=== PATIENT | female | born 1960 | race Caucasian/White ===

== ENCOUNTER 2016-07-28 13:28 | Inpatient (IN) | payer BC, OTHER ==
[2016-07-28 13:32] VITALS: BMI 31.1
--- NOTE | 2016-07-28 16:22 | PDOC ---
History of Present Illness - General History Source: Patient Exam Limitations: No Limitations - History of Present Illness Initial Comments: 07/28/16 16:34 The patient is a 55 year old female, with a significant past medical history of DM, COPD, and glaucoma, who was sent to the emergency department by her PCP with SOB and cough since wednesday. Patient reports noted her O2 sat was in the low 90s. She reports getting her flu shot and notes having a fever of 101 today. Allergies: NKA PCP: <David Eric - Last Filed: 07/28/16 16:33> <Dacia Jasso - Last Filed: 07/28/16 18:27> - General Chief Complaint: Shortness of Breath Stated Complaint: PCP SENT Time Seen by Provider: 07/28/16 16:08 Past History <David Eric - Last Filed: 07/28/16 16:33> - Past Medical History COPD: Yes Diabetes: Yes Hypercholesterolemia: Yes Psychiatric Problems: Yes (bipolar) - Psycho/Social/Smoking Cessation Hx Anxiety: Yes Suicidal Ideation: No Smoking History: Never smoked Number of Cigarettes Smoked Daily: 20 Information on smoking cessation initiated: No Hx Alcohol Use: No Drug/Substance Use Hx: No Substance Use Type: Alcohol <Dacia Jasso - Last Filed: 07/28/16 18:27> - Past Medical History Allergies/Adverse Reactions: Allergies Allergy/AdvReac Type Severity Reaction Status Date / Time No Known Allergies Allergy Verified 07/28/16 13:32 Review of Systems - Review of Systems Able to Perform ROS?: Yes Comments:: 07/28/16 16:34 GENERAL/CONSTITUTIONAL: Yes fever. No weakness. HEAD, EYES, EARS, NOSE AND THROAT: No change in vision. No ear pain or discharge. No sore throat. CARDIOVASCULAR: No chest pain Yes shortness of breath. RESPIRATORY: No cough, wheezing, or hemoptysis. GASTROINTESTINAL: No nausea, vomiting, diarrhea or constipation. GENITOURINARY: No dysuria, frequency, or change in urination. MUSCULOSKELETAL: No joint or muscle swelling or pain. No neck or back pain. SKIN: No rash NEUROLOGIC: No headache, vertigo, loss of consciousness, or change in strength/ sensation. ENDOCRINE: No increased thirst. No abnormal weight change. HEMATOLOGIC/LYMPHATIC: No anemia, easy bleeding, or history of blood clots. ALLERGIC/IMMUNOLOGIC: No hives or skin allergy. <David Eric - Last Filed: 07/28/16 16:33> *Physical Exam - Vital Signs Last Vital Signs Temp Pulse Resp BP Pulse Ox 100.2 F H 112 H 20 133/75 94 L 07/28/16 13:30 07/28/16 13:30 07/28/16 13:30 07/28/16 13:30 07/28/16 13:30 - Physical Exam Comments: 07/28/16 16:34 GENERAL: Awake, alert, and fully oriented, appears ill. HEAD: No signs of trauma EYES: PERRLA, EOMI, sclera anicteric, conjunctiva clear ENT: Auricles normal inspection, hearing grossly normal, nares patent, oropharynx clear without exudates. Moist mucosa NECK: Normal ROM, supple, no lymphadenopathy, JVD, or masses LUNGS: Slightly decreased air entry. No wheezes, and no crackles HEART: Regular rate and rhythm, normal S1 and S2, no murmurs, rubs or gallops ABDOMEN: Soft, nontender, normoactive bowel sounds. No guarding, no rebound. No masses EXTREMITIES: Normal range of motion, no edema. No clubbing or cyanosis. No cords, erythema, or tenderness NEUROLOGICAL: Cranial nerves II through XII grossly intact. Normal speech, normal gait SKIN: Warm, Dry, normal turgor, no rashes or lesions noted. <David Eric - Last Filed: 07/28/16 16:33> - Vital Signs Last Vital Signs Temp Pulse Resp BP Pulse Ox 100.2 F H 112 H 20 133/75 94 L 07/28/16 13:30 07/28/16 13:30 07/28/16 13:30 07/28/16 13:30 07/28/16 13:30 <Dacia Jasso - Last Filed: 07/28/16 18:27> ED Treatment Course - LABORATORY CBC & Chemistry Diagram: 07/28/16 17:27 07/28/16 17:27 <Dacia Jasso - Last Filed: 07/28/16 18:27> *DC/Admit/Observation/Transfer - Attestations Scribe Attestion: 07/28/16 16:34 Documentation prepared by David Eric, acting as certified medical assistant for Dacia Jasso MD. <David Eric - Last Filed: 07/28/16 16:33> - Discharge Dispostion Admit: Yes <Dacia Jasso - Last Filed: 07/28/16 18:27> Diagnosis at time of Disposition: Influenza due to influenza virus, type A, human - Discharge Dispostion Condition at time of disposition: Guarded - Referrals Referrals: Tony Metz MD [Primary Care Provider] -
[2016-07-28] MEDS ORDERED: methylPREDNISolone NA SUCC 125 MG/2 ML VIAL IVPB ONE (16:33)
[2016-07-28] MEDS ORDERED: guaiFENesin/CODEINE 10 ML UNIT-DOSE CUPS PO ONE (16:33)
[2016-07-28] MEDS ORDERED: SODIUM CHLORIDE 1,000 ML IV STA ×2 (16:33→18:14)
[2016-07-28] MEDS ORDERED: ALBUTEROL SO4 2.5/IPRATROPIUM 0.5 INH SOL 3 ML VIAL.NEB. NEB ONE (17:13)
[2016-07-28] MEDS ORDERED: methylPREDNISolone NA SUCC 125 MG/2 ML VIAL ONE (17:13)
[2016-07-28] MEDS ORDERED: guaiFENesin/CODEINE 5 ML UNIT-DOSE CUPS PO ONE (17:13)
[2016-07-28] MEDS: ALBUTEROL SO4 2.5/IPRATROPIUM 0.5 INH SOL 3 ML VIAL.NEB. NEB SCH (17:27)
[2016-07-28] MEDS ORDERED: KETOROLAC TROMETHAMINE 30 MG/1 ML VIAL IVPUSH ONE (17:30)
[2016-07-28 17:33] LABS: BASOPHIL 2.1 % (0-2.0); MCH 29.7 pg (25.7-33.7); MCHC 34.4 g/dl (32.0-36.0); MEAN CELL VOLUME 86.5 fl (80-96); MEAN PLT VOLUME 8.9 fl (7.5-11.1); NEUTROPHILS 54.3 % (42.8-82.8); PLATELET COUNT 149 K/MM3 (134-434); RDW 12.9 % (11.6-15.6); WHITE BLOOD COUNT 4.7 K/mm3 (4.0-10.0)
[2016-07-28 18:09] LABS: ALBUMIN 3.7 g/dl (3.4-5.0); ANION GAP 7 (8-16); BILIRUBIN,TOTAL 0.4 mg/dL (0.2-1.0); CO2 28 mmol/L (21-32); CREATININE 0.8 mg/dL (0.55-1.02); SGOT/AST 25 U/L (15-37); SGPT/ALT 29 U/L (12-78); TOT PROT 6.6 g/dl (6.4-8.2)
[2016-07-28 18:10] LABS: ALK PHOS 119 U/L (45-117)
[2016-07-28 18:13] LABS: GLUCOSE,RANDOM 335 mg/dL (74-106)
[2016-07-28] MEDS ORDERED: INSULIN REGULAR HUMAN 100 UNITS/ML *VIAL SQ ONE (18:14)
[2016-07-28] MEDS ORDERED: INSULIN REGULAR HUMAN 100 UNITS/ML *VIAL ONE ×2 (18:17→22:03)
[2016-07-28] MEDS ORDERED: KETOROLAC TROMETHAMINE 30 MG/1 ML VIAL ONE (18:17)
[2016-07-28] MEDS ORDERED: OSELTAMIVIR PHOSPHATE 75 MG CAPSULE PO ONE (18:28)
[2016-07-28] MEDS ORDERED: OSELTAMIVIR PHOSPHATE 75 MG CAPSULE ONE (18:37)
--- NOTE | 2016-07-28 19:18 | PN ---
<Shiloh Dillard - Last Filed: 07/28/16 19:18> Teaching Attending Note Name of Resident: Alyson Wilder ATTENDING PHYSICIAN STATEMENT I saw and evaluated the patient. I reviewed the resident's note and discussed the case with the resident. I agree with the resident's findings and plan as documented. SUBJECTIVE: OBJECTIVE: ASSESSMENT AND PLAN: <BobbyGeraldine - Last Filed: 07/29/16 05:03> Teaching Attending Note ATTENDING PHYSICIAN STATEMENT I saw and evaluated the patient. I reviewed the resident's note and discussed the case with the resident. I agree with the resident's findings and plan as documented. SUBJECTIVE: The patient is a 55 yo F with a PMHx of 55 yo F with hx of diabetes, COPD, glaucoma, bipolar disorder, GERD who was sent to ED by PCP for SOB and dry cough for the past 4 days. She also endorsees subjective fever. Patient reports she had her flu shot. OBJECTIVE: Physical Last Vital Signs Temp Pulse Resp BP Pulse Ox 100.5 F H 123 H 20 130/66 92 L 07/28/16 19:14 07/28/16 19:14 07/28/16 19:14 07/28/16 19:14 07/28/16 19:14 Updated Vital Signs Temp: 99.7 BP: 120/75 Pulse: 124 Pulse Ox: 91 on room air GEN: NAD HEENT: NCAT, PERRL CARD: + Sinus tachycardic. S1 S2 RESP: + Decreased breath sounds bilaterally throughout the bases. CTAB ABD: NT, BWS x4 EXT: - CCE CBCD WBC 4.7 K/mm3 (4.0-10.0) 07/28/16 17:27 RBC 5.52 M/mm3 (3.60-5.2) H 07/28/16 17:27 Hgb 16.4 GM/dL (10.7-15.3) H 07/28/16 17:27 Hct 47.7 % (32.4-45.2) H 07/28/16 17:27 MCV 86.5 fl (80-96) 07/28/16 17:27 MCHC 34.4 g/dl (32.0-36.0) 07/28/16 17:27 RDW 12.9 % (11.6-15.6) 07/28/16 17:27 Plt Count 149 K/MM3 (134-434) 07/28/16 17:27 MPV 8.9 fl (7.5-11.1) 07/28/16 17:27 CMP Sodium 136 mmol/L (136-145) 07/28/16 17:27 Potassium 4.0 mmol/L (3.5-5.1) D 07/28/16 17:27 Chloride 101 mmol/L (98-107) 07/28/16 17:27 Carbon Dioxide 28 mmol/L (21-32) 07/28/16 17:27 Anion Gap 7 (8-16) L 07/28/16 17:27 BUN 8 mg/dL (7-18) D 07/28/16 17:27 Creatinine 0.8 mg/dL (0.55-1.02) 07/28/16 17:27 Creat Clearance w eGFR > 60 (>60) 07/28/16 17: Calcium 8.0 mg/dL (8.5-10.1) L 07/28/16 17:27 Total Bilirubin 0.4 mg/dL (0.2-1.0) 07/28/16 17:27 AST 25 U/L (15-37) D 07/28/16 17:27 ALT 29 U/L (12-78) D 07/28/16 17:27 Alkaline Phosphatase 119 U/L (45-117) H D 07/28/16 17:27 Total Protein 6.6 g/dl (6.4-8.2) 07/28/16 17: Albumin 3.7 g/dl (3.4-5.0) 07/28/16 17:27 IMAGING: Chest Xray IMPRESSION: No acute disease. ASSESSMENT AND PLAN: The patient is a 55 yo F with hx of diabetes, COPD, glaucoma, bipolar disorder, GERD who presents with SOB and cough. The patient was found to be Influenza A+. 1.) Sepsis due to Influenza - IVF - Lactic acid - - Continue Tamiflu for 5 days. - Continue with antiviral 2.) Acute COPD Exacerbation - Duonebs PRN - Continue with Prednisone 3.) Sepsis secondary to Flu - Blood cultures 4.) Diabetes - Sliding scale - Fingersticks - Diabetic diet 5.) DVT PPx - SCDs Admit to Med Surg Documentation prepared by Geraldine Rosales, acting as medical device sales representative for Shiloh Dillard MD.
[2016-07-28] MEDS ORDERED: ACETAMINOPHEN INJECTION 100 ML IVPB ONE (19:20)
[2016-07-28] MEDS ORDERED: ACETAMINOPHEN 1000 MG/100 ML VIAL (NON FORMULARY) IVPB ONE (19:22)
--- NOTE | 2016-07-28 20:07 | HP ---
Addendum entered and electronically signed by Alyson Wilder RES 07/29/16 06:25 : Correction: PAST MEDICAL HISTORY: DM, COPD, GERD, Glaucoma, Bipolar disorder, and Depression Addendum entered and electronically signed by Alyson Wilder RES 07/29/16 06:21 : Repeat lactic acid elevated at 2.749. 1 Bolus of IV NS ordered. Repeat Lactic acid at 0830. Addendum entered and electronically signed by Alyson Wilder RES 07/29/16 00:41 : Lactic Acid level 2.163. Continue hydration with IV NS @75 mls/hr and treat symptomatically. Will repeat another level at 0300. Original Note: CHIEF COMPLAINT: Shortness of breath PCP: Dr. Tony Metz HISTORY OF PRESENT ILLNESS: Patient is a 55 year old female with a PMHx of DM, COPD, GERD, glaucoma, Bipolar disorder, and Depression who complains of shortness of breath a dry cough associated with subjective fevers and chills for the last four days. Patient states last night at 0200 her shortness of breath worsened, which prompted her to visit her PCP this morning. He gave her one nebulizer treatment and recommended that she comes to the ED because of minimal relief of symptoms and an 02 saturation of 90%. Patient does admit to having a history of COPD but was never hospitalized for exacerbations but does report a history of pneumonia one year ago. She does not know her 02 saturation at baseline and denies oxygen dependency. Patient also reports receiving her flu shot this year. Otherwise, patient denies chest pain, headaches, loss on consciousness, acute visual changes, runny nose, throat pain, nausea, vomiting. ER course was notable for: (1) Solu-medrol 125mg, Toradol 30mg IV, Tylenol 1000mg IV, Robitussin AC, First dose Tamiflu 75mg (2) 2L IV NS and 4 units Insulin (3) Chest-xray and flu swab Recent Travel: Denies PAST MEDICAL HISTORY: Denies PAST SURGICAL HISTORY: Denies Social History: Smokin PPD for 37 years Alcohol: Occasionally drinks beer Drugs: Denies Family History: Denies Allergies: No Known Allergies Allergy (Verified 07/28/16 13:32) HOME MEDICATIONS: Medication Instructions Recorded Buspirone HCl [Buspar -] 20 mg PO BID 07/28/16 Lamotrigine [Lamictal] 100 mg PO DAILY 07/28/16 Metformin HCl 500 mg PO BID 07/28/16 Omeprazole Magnesium [Prilosec] 10 mg PO ASDIR 07/28/16 REVIEW OF SYSTEMS CONSTITUTIONAL: Present: subjective fever, chills Absent: diaphoresis, generalized weakness, malaise, loss of appetite, weight change HEENT: Absent: rhinorrhea, nasal congestion, throat pain, throat swelling, difficulty swallowing, mouth swelling, ear pain, eye pain, visual changes CARDIOVASCULAR: Absent: chest pain, syncope, palpitations, irregular heart rate, lightheadedness , peripheral edema RESPIRATORY: Present: cough, shortness of breath Absent: dyspnea with exertion, orthopnea, wheezing, stridor, hemoptysis GASTROINTESTINAL: Absent: abdominal pain, abdominal distension, nausea, vomiting, diarrhea, constipation, melena, hematochezia GENITOURINARY: Absent: dysuria, frequency, urgency, hesitancy, hematuria, flank pain, genital pain MUSCULOSKELETAL: Absent: myalgia, arthralgia, joint swelling, back pain, neck pain SKIN: Absent: rash, itching, pallor HEMATOLOGIC/IMMUNOLOGIC: Absent: easy bleeding, easy bruising, lymphadenopathy, frequent infections ENDOCRINE: Absent: unexplained weight gain, unexplained weight loss, heat intolerance, cold intolerance NEUROLOGIC: Absent: headache, focal weakness or paresthesias, dizziness, unsteady gait, seizure, mental status changes, bladder or bowel incontinence PSYCHIATRIC: Absent: anxiety, depression, suicidal or homicidal ideation, hallucinations. Vital Signs - 24 hr 07/28/16 07/28/16 07/28/16 13:30 17:00 19:14 Temperature 100.2 F H 100.5 F H Pulse Rate 112 H Pulse Rate [ 123 H Right] Respiratory 20 20 Rate Blood Pressure 133/75 Blood Pressure 130/66 [Left Arm] O2 Sat by Pulse 94 L 100 92 L Oximetry (%) Repeat Vitals: Temp: 99.7 BP: 120/75 Pulse: 124 Pulse Ox: 91 on room air PHYSICAL EXAMINATION GENERAL: Awake, alert, and fully oriented, in no acute distress. HEAD: Normal with no signs of trauma. EYES: Pupils equal, round and reactive to light, extraocular movements intact, sclera anicteric, conjunctiva clear. EARS, NOSE, THROAT: Ears normal, nares patent, oropharynx clear without exudates. Moist mucous membranes. NECK: Normal range of motion, supple without lymphadenopathy, JVD, or masses. LUNGS: Decreased breath sounds throughout lung bases bilaterally. No wheezes, and no crackles. No accessory muscle use. HEART: Tachycardia with regular rhythm, normal S1 and S2 without murmur, rub or gallop. ABDOMEN: Soft, nontender, not distended, normoactive bowel sounds, no guarding, no rebound, no masses. No hepatomegaly or splenomegaly. MUSCULOSKELETAL: Normal range of motion at all joints. No CVA tenderness. UPPER EXTREMITIES: No peripheral edema. LOWER EXTREMITIES: No peripheral edema. NEUROLOGICAL: Normal speech, Motor strength 5/5 throughout, sensory intact, no focal deficits. PSYCHIATRIC: Cooperative. Good eye contact. Appropriate mood and affect. SKIN: Warm, dry, normal turgor, no rashes or lesions noted. Laboratory Results - last 24 hr 07/28/16 07/28/16 17:27 17:27 WBC 4.7 RBC 5.52 H Hgb 16.4 H Hct 47.7 H MCV 86.5 MCHC 34.4 RDW 12.9 Plt Count 149 MPV 8.9 Neutrophils % 54.3 Lymphocytes % 24.8 D Monocytes % 18.8 H D Eosinophils % 0.0 D Basophils % 2.1 H Sodium 136 Potassium 4.0 D Chloride 101 Carbon Dioxide 28 Anion Gap 7 L BUN 8 D Creatinine 0.8 Creat Clearance w eGFR > 60 Random Glucose 335 H* D Calcium 8.0 L Total Bilirubin 0.4 AST 25 D ALT 29 D Alkaline Phosphatase 119 H D Total Protein 6.6 Albumin 3.7 ASSESSMENT/PLAN: Patient is a 55 year old female with a PMHx of DM II, COPD, GERD, Glaucoma, Bipolar disorder, and depression who presented for shortness of breath and dry cough associated with subjective fevers and chills. Patient met SIRS criteria on initial presentation and was found to be influenza A positive. Patient admitted to med/surg for further monitoring and management. Sepsis likely secondary to Influenza A -Rapid flu swab positive -Continue Tamiflu 75mg BID -IV NS @75 mls/hr -Tylenol 650mg Q8H -Blood cultures ordered -Lactic ordered -Continue to treat symptomatically -Continue to monitor vitals COPD Exacerbation -DuoNeb Q6H PRN -Prednisone 60mg daily -2L of 02 -Check 02 saturation -Continue to monitor vitals Hyperglycemia -History of DMII -Glucose level of 335 on initial presentation -Insulin sliding scale -BGM GERD -Protonix 20mg daily Bipolar disorder -Continue Lamotrigine 100mg daily Depression -Continue Buspirone 20mg daily F/E/N -IV NS @75 mls/hr -Electrolytes wnl -Diabetic controlled diet Prophylaxis -SCD's for DVT- moderate risk, able to ambulate -Protonix for GI Disposition -Full code -Admitted to med/surg. Continue to monitor Visit type - Emergency Visit Emergency Visit: Yes ED Registration Date: 07/28/16 Care time: The patient presented to the Emergency Department on the above date and was hospitalized for further evaluation of their emergent condition. - New Patient This patient is new to me today: Yes Date on this admission: 07/29/16 - Critical Care Critical Care patient: No
[2016-07-28] MEDS ORDERED: ACETAMINOPHEN 325 MG TABLET (FP) PO PRN (20:09)
[2016-07-28] MEDS ORDERED: ALBUTEROL SO4 2.5/IPRATROPIUM 0.5 INH SOL 3 ML VIAL.NEB. NEB PRN (20:13)
[2016-07-28] MEDS ORDERED: SODIUM CHLORIDE 1,000 ML IV SCH (21:30)
[2016-07-28] MEDS ORDERED: INSULIN SLIDING SCALE (NOVOLOG) 1 VIAL SQ SCH (22:00)
[2016-07-28] MEDS: busPIRone HCL 10 MG TABLET (FP) PO SCH (22:30)
[2016-07-29 02:10] LABS: CALCIUM 7.7 mg/dL (8.5-10.1)
[2016-07-29] MEDS ORDERED: INSULIN REGULAR HUMAN 100 UNITS/ML *VIAL ONE ×3 (02:28→10:49)
[2016-07-29] MEDS: INSULIN SLIDING SCALE (NOVOLOG) 1 VIAL SQ SCH ×2 (02:32→06:31)
[2016-07-29] MEDS ORDERED: HEMOQUE TEST 1 EACH EACH ONE (04:02)
[2016-07-29 04:22] VITALS: BP 120/78; TEMP 98.2
[2016-07-29] MEDS ORDERED: INSULIN (NOVOLOG) ASPART 100 UNITS/ML 10ML VIAL ONE ×2 (05:22→06:34)
[2016-07-29] MEDS ORDERED: SODIUM CHLORIDE 1,000 ML IV STA (06:20)
[2016-07-29 08:20] LABS: ALBUMIN 3.1 g/dl (3.4-5.0); ANION GAP 9 (8-16); CALCIUM 7.8 mg/dL (8.5-10.1); CO2 22 mmol/L (21-32); GLUCOSE,RANDOM 239 mg/dL (74-106)
[2016-07-29 08:23] LABS: ALK PHOS 107 U/L (45-117); BILIRUBIN,TOTAL 0.2 mg/dL (0.2-1.0); CREATININE 0.8 mg/dL (0.55-1.02); SGPT/ALT 24 U/L (12-78); TOT PROT 5.8 g/dl (6.4-8.2)
[2016-07-29 08:29] LABS: SGOT/AST 18 U/L (15-37)
[2016-07-29] MEDS ORDERED: lamoTRIgine 100 MG TABLET (FP) PO SCH (10:00)
[2016-07-29] MEDS ORDERED: PANTOPRAZOLE 20 MG TABLET (FP) PO SCH ×3 (10:00)
[2016-07-29] MEDS ORDERED: predniSONE 20 MG TABLET (UD) PO SCH (10:00)
[2016-07-29] MEDS ORDERED: OSELTAMIVIR PHOSPHATE 75 MG CAPSULE PO SCH (10:00)
[2016-07-29] MEDS: busPIRone HCL 10 MG TABLET (FP) PO SCH (10:16)
[2016-07-29] MEDS ORDERED: INSULIN SLIDING SCALE (NOVOLOG) 1 VIAL SQ SCH (11:00)
--- NOTE | 2016-07-29 15:10 | DS ---
Physical Exam: SUBJECTIVE: Patient seen and examined. She states she is still tired feeling, but improved from when she arrived. OBJECTIVE: Vital Signs Period Temp Pulse Resp BP Sys/Benz Pulse Ox Last 24 Hr 98.2 F-99.1 F 70-85 18-20 111-120/68-78 95-100 PHYSICAL EXAM Neuro: alert, awake, cn 2-12intact Pulm: CTAB CV: s1 s2 rrr no mrg Abd: s nt nd + bs Ext: warm no le edema Skin: ankle tattoo Laboratory Results - last 24 hr 07/28/16 07/28/16 07/29/16 22:00 23:00 00:29 Sodium Potassium Chloride Carbon Dioxide Anion Gap BUN Creatinine Creat Clearance w eGFR POC Glucometer > 400 > 400 > 400 Random Glucose Hemoglobin A1c % Lactic Acid Calcium Total Bilirubin AST ALT Alkaline Phosphatase Total Protein Albumin 07/29/16 07/29/16 07/29/16 00:51 04:11 05:00 Sodium 138 Potassium 4.3 Chloride 107 Carbon Dioxide 25 Anion Gap 6 L BUN 12 D Creatinine 1.0 D Creat Clearance w eGFR POC Glucometer > 400 Random Glucose 572 H* D Hemoglobin A1c % Lactic Acid 2.749 H* Calcium 7.7 L Total Bilirubin AST ALT Alkaline Phosphatase Total Protein Albumin 07/29/16 07/29/16 07/29/16 05:15 06:15 06:16 Sodium 144 Potassium 4.0 Chloride 113 H Carbon Dioxide 22 Anion Gap 9 BUN 12 Creatinine 0.8 Creat Clearance w eGFR > 60 POC Glucometer [id number] Random Glucose 239 H D Hemoglobin A1c % Lactic Acid Calcium 7.8 L Total Bilirubin 0.2 D AST 18 D ALT 24 Alkaline Phosphatase 107 Total Protein 5.8 L Albumin 3.1 L 07/29/16 07/29/16 07/29/16 08:32 08:32 10:46 Sodium Potassium Chloride Carbon Dioxide Anion Gap BUN Creatinine Creat Clearance w eGFR POC Glucometer [phone] Random Glucose Hemoglobin A1c % 11.6 H Lactic Acid 1.305 Calcium Total Bilirubin AST ALT Alkaline Phosphatase Total Protein Albumin HOSPITAL COURSE: Date of Admission:07/28/16 Date of Discharge: 07/29/16 Minutes to complete discharge: 35 Discharge Summary Reason For Visit: INFLUENZA A Current Active Problems Influenza A (Acute) Hospital Course: Initial Hospital Course: Briefly, this 55 year old female with a PMHx of DM, COPD, GERD, glaucoma, Bipolar disorder, and Depression admitted with shortness of breath a dry cough associated with subjective fevers and chills for the last four days. Overnight her shortness of breath worsened, which prompted her to visit her PCP this morning. He gave her one nebulizer treatment and recommended that she came to the ED because of minimal relief of symptoms and an 02 saturation of 90%. Patient does admit to having a history of COPD but was never hospitalized for exacerbations, did have pna x1 year ago. She does not know her 02 saturation at baseline and denies oxygen dependency. She received her flu shot this year. Subsequent Hospital Course/Progress Note/Discharge Summary: Found to be septic with elevated lactic acid. Rapid flu showed Positive for influenza A and was started on tamiflu. Total of 3L fluid given. For SOB was given x1 of 125mg solumedrol with relief. Repeat lactic acid wnl, no further fevers noted. VSS Elevated glucose improved with insulin. PT hgb a1c 11.6 Discussed importance of following up with pyrotechnist with pt, she says if she has to go on insulin she will and will discuss it with her doctor. On discharge pt felt much better than admitted. Lung exam clear, no wheezing or sob noted. Instructed pt to rest, drink plenty of fluids and return to work in 5 days. Pt stable on discharge, prescription sent to pharmacy with pcp follow up. Condition: Stable - Instructions Diet, Activity, Other Instructions: Please return to the ED for any new, persistent, or worsening symptoms. Follow up with your PCP in 1 week and see your diabetes doctor next week for continued management of your diabetes. We have faxed a copy of your discharge summary to his office Resume home medications as directed Take Tamiflu twice a day for the next 4 days until completed Wear face mask around son for next few days Referrals: Tony Metz MD [Primary Care Provider] - 1 Week ([phone]- office number [phone]- office fax number ) Disposition: HOME - Home Medications Comprehensive Discharge Medication List: Ambulatory Orders Buspirone HCl [Buspar -] 20 mg PO BID 07/28/16 Lamotrigine [Lamictal] 100 mg PO DAILY 07/28/16 Metformin HCl 500 mg PO DAILY 07/28/16 Omeprazole Magnesium [Prilosec] 10 mg PO ASDIR 07/28/16 Glyburide 2.5 mg PO DAILY 07/29/16 Oseltamivir Phosphate [Tamiflu -] 75 mg PO BID #10 capsule 07/29/16 Problem List - Problems (1) Uncontrolled diabetes mellitus Code(s): E11.65 - TYPE 2 DIABETES MELLITUS WITH HYPERGLYCEMIA (2) Sepsis Code(s): A41.9 - SEPSIS, UNSPECIFIED ORGANISM (3) Elevated lactic acid level Code(s): E87.2 - ACIDOSIS (4) Shortness of breath Code(s): R06.02 - SHORTNESS OF BREATH (5) Hyperglycemia Code(s): R73.9 - HYPERGLYCEMIA, UNSPECIFIED This patient is new to me today: Yes Date on this admission: 07/29/16 Emergency Visit: Yes ED Registration Date: 07/28/16 Care time: The patient presented to the Emergency Department on the above date and was hospitalized for further evaluation of their emergent condition. Critical Care patient: No - Discharge Referral Referred to [facility] Med P.C[facility] No
[2016-07-29 16:42] VITALS: PULSE 78
== END 2016-07-29 14:56 | disposition home or self-care (01) | DRG 872 ==
LOC: JER 13:28 → JERBED 19:17
PROVIDERS: ADMIT Internal Medicine; ATTEND Nurse Practitioner Acute Care
DX: A41.9 Sepsis, unspecified organism (principal); J44.1 Chronic obstructive pulmonary disease with (acute) exacerbation; F31.89 Other bipolar disorder; J10.1 Influenza due to other identified influenza virus with other respiratory manifestations; K21.9 Gastro-esophageal reflux disease without esophagitis; H40.9 Unspecified glaucoma; E11.65 Type 2 diabetes mellitus with hyperglycemia
CPT/HCPCS: 36415; 71010-TC; 80048; 80053; 83036; 83605; 85025; 87040; 87804; 99285-25

== ENCOUNTER 2017-01-21 09:28 | Emergency (ER) | payer BC, OTHER ==
[2017-01-21 09:33] VITALS: TEMP 97.8; BMI 31.1
--- NOTE | 2017-01-21 09:42 | PDOC ---
History of Present Illness - General History Source: Patient Exam Limitations: No Limitations - History of Present Illness Initial Comments: 01/21/17 10:52 The patient is a 56 year old female with a significant past medical history of hypercholesterolemia, diabetes, COPD, glaucoma, and bipolar disorder, sent by PCP to the Emergency Department with headache and high blood sugar levels. Patient states that her blood sugar was 536 this morning when she saw her PCP this morning at 8:30am. She admits that her blood sugar is not well controlled, as she was in the ED two weeks ago for high blood sugar. She states that she does not control her diet. She also admits to polyuria. She states that he has been experiencing abdominal pain and diarrhea for one week, which is what she went to her PCP today to discuss. She admits to a normal appetite. Patient admits to wheezing secondary to COPD. The patient denies nausea, or vomiting. Patient denies hematochezia. Patient denies fever, cough, and chills. Patient denies chest pain, palpitations, and diaphoresis. Patient denies dizziness, or visual changes. PCP: Dr. Tony Bean Hx: current everyday cigarette smoker 1PPD <Briana Coto - Last Filed: 01/21/17 11:00> <Suha Madison - Last Filed: 01/21/17 15:29> - General Chief Complaint: Blood Sugar Problem Stated Complaint: HEADACHES, HIGH SUGAR Time Seen by Provider: 01/21/17 09:42 Past History <Briana Coto - Last Filed: 01/21/17 11:00> - Past Medical History COPD: Yes Diabetes: Yes Hypercholesterolemia: Yes Psychiatric Problems: Yes (bipolar) - Immunization History Immunization Up to Date: Yes - Psycho/Social/Smoking Cessation Hx Anxiety: Yes Suicidal Ideation: No Smoking History: Current every day smoker Number of Cigarettes Smoked Daily: 20 Information on smoking cessation initiated: Yes 'Breaking Loose' booklet given: 01/21/17 Hx Alcohol Use: No Drug/Substance Use Hx: No Substance Use Type: None <Suha Madison - Last Filed: 01/21/17 15:29> - Past Medical History Allergies/Adverse Reactions: Allergies Allergy/AdvReac Type Severity Reaction Status Date / Time No Known Allergies Allergy Verified 01/21/17 09:33 Home Medications: Ambulatory Orders Buspirone HCl [Buspar -] 20 mg PO BID 07/28/16 Lamotrigine [Lamictal] 100 mg PO DAILY 07/28/16 Metformin HCl 500 mg PO BID 07/28/16 Review of Systems - Review of Systems Able to Perform ROS?: Yes Comments:: 01/21/17 10:52 CONSTITUTIONAL: Present: + high blood sugar levels Absent: fever, no chills, no fatigue EYES: Absent: visual changes ENT: Absent: ear pain, no sore throat CARDIOVASCULAR: Absent: chest pain, no palpitations RESPIRATORY: Absent: cough, no SOB GI: Present: + abdominal pain, + diarrhea Absent: no nausea, no vomiting, no constipation GENITOURINARY: Absent: dysuria, no frequency, no hematuria MUSCULOSKELETAL: Absent: back pain, no arthralgia, no myalgia SKIN: Absent: rash NEURO: Present: + headache Absent: visual changes <Briana Coto - Last Filed: 01/21/17 11:00> *Physical Exam - Vital Signs Last Vital Signs Temp Pulse Resp BP Pulse Ox 97.8 F 90 19 139/69 98 01/21/17 09:31 01/21/17 09:31 01/21/17 09:31 01/21/17 09:31 01/21/17 09:31 - Physical Exam Comments: 01/21/17 10:53 GENERAL: Well-appearing, well-nourished. No apparent distress. HEENT: Normocephalic, atraumatic. PERRL, EOM intact. CARDIOVASCULAR: Normal S1, S2. Regular rate and rhythm. PULMONARY: Diffuse wheezing throughout. Clear to auscultation bilaterally. ABDOMEN: Soft, non-distended, non-tender. EXTREMITIES: Normal ROM in all four extremities. No gross deformities. SKIN: Warm, dry. No rash NEUROLOGICAL: Alert, awake, appropriate. Cranial nerves 2-12 intact. No focal neurological deficits. <Briana Coto - Last Filed: 01/21/17 11:00> - Vital Signs Last Vital Signs Temp Pulse Resp BP Pulse Ox 97.8 F 90 19 139/69 98 01/21/17 09:31 01/21/17 09:31 01/21/17 09:31 01/21/17 09:31 01/21/17 09:31 <Suha Madison Last Filed: 01/21/17 15:29> ED Treatment Course - LABORATORY CBC & Chemistry Diagram: 01/21/17 09:59 01/21/17 09:59 - ADDITIONAL ORDERS Additional order review: Laboratory Results 01/21/17 01/21/17 10:05 09:59 Sodium 136 Potassium 3.9 Chloride 102 Carbon Dioxide 26 Anion Gap 8 BUN 14 Creatinine 0.8 Creat Clearance w eGFR > 60 POC Glucometer [phone] Random Glucose 376 H* D Calcium 9.2 Total Bilirubin 0.4 D AST 16 ALT 31 D Alkaline Phosphatase 92 Total Protein 6.9 Albumin 3.9 D 01/21/17 01/21/17 10:05 09:59 RBC 5.02 MCV 88.8 MCHC 34.4 RDW 13.0 MPV 8.7 Neutrophils % 52.7 Lymphocytes % 34.2 D Monocytes % 10.2 Eosinophils % 1.9 D Basophils % 1.0 POC Glucometer [phone] - Medications Given in the ED: ED Medications Discontinued Medications Generic Name Dose Route Start Last Admin Trade Name Willq PRN Reason Stop Dose Admin Sodium Chloride 1,000 ml 01/21/17 10:12 01/21/17 10:13 Normal Saline - IV 01/21/17 10:13 1,000 ml NOW ONE Administration <Briana Coto - Last Filed: 01/21/17 11:00> - LABORATORY CBC & Chemistry Diagram: 01/21/17 09:59 01/21/17 09:59 <Suha Madison - Last Filed: 01/21/17 15:29> Medical Decision Making - Medical Decision Making 01/21/17 15:26 Pt presents to the ED for hyperglycemia. No evidence of DKA. Resolved in the ED after IV hydration and insulin. Will discharge home with urgent follow up with her PMD. Patient has been couseled on importance of complaiance with diabetic diet. <Suha Madison - Last Filed: 01/21/17 15:29> *DC/Admit/Observation/Transfer - Attestations Scribe Attestion: 01/21/17 11:01 Documentation prepared by Briana Coto, acting as certified medical transcriptionist for Suha Madison MD. <Briana Coto - Last Filed: 01/21/17 11:00> - Discharge Dispostion Admit: No <Suha Madison - Last Filed: 01/21/17 15:29> Diagnosis at time of Disposition: Hyperglycemia - Discharge Dispostion Disposition: HOME Condition at time of disposition: Good - Patient Instructions Printed Discharge Instructions: DI for Hyperglycemia -- Adult
[2017-01-21 10:11] LABS: EOSINOPHIL 1.9 % (0-4.5); MCH 30.6 pg (25.7-33.7); MCHC 34.4 g/dl (32.0-36.0); MEAN CELL VOLUME 88.8 fl (80-96); MEAN PLT VOLUME 8.7 fl (7.5-11.1); NEUTROPHILS 52.7 % (42.8-82.8); PLATELET COUNT 194 K/MM3 (134-434); WHITE BLOOD COUNT 5.8 K/mm3 (4.0-10.0)
[2017-01-21] MEDS ORDERED: SODIUM CHLORIDE 0.9% 1000 ML INFUS.BAG IV ONE ×2 (10:12→12:31)
[2017-01-21] MEDS ORDERED: SODIUM CHLORIDE 0.9% 500 ML INFUS.BAG IV ONE (10:14)
[2017-01-21 10:31] LABS: ALBUMIN 3.9 g/dl (3.4-5.0); ANION GAP 8 (8-16); CALCIUM 9.2 mg/dL (8.5-10.1); CO2 26 mmol/L (21-32)
[2017-01-21 10:35] LABS: BILIRUBIN,TOTAL 0.4 mg/dL (0.2-1.0); CREATININE 0.8 mg/dL (0.55-1.02); SGOT/AST 16 U/L (15-37); SGPT/ALT 31 U/L (12-78)
[2017-01-21 10:37] LABS: ALK PHOS 92 U/L (45-117); TOT PROT 6.9 g/dl (6.4-8.2)
[2017-01-21 10:50] LABS: GLUCOSE,RANDOM 376 mg/dL (74-106)
[2017-01-21 11:34] LABS: URINE APPEARANCE CLEAR; URINE BILIRUBIN NEGATIVE (NEGATIVE); URINE BLOOD NEGATIVE (NEGATIVE); URINE COLOR STRAW; URINE GLUCOSE (UA) 3+ (NEGATIVE); URINE KETONE NEGATIVE (NEGATIVE); URINE LEUK ESTERASE NEGATIVE (NEGATIVE); URINE NITRITE NEGATIVE (NEGATIVE); URINE PROTEIN NEGATIVE (NEGATIVE); URINE UROBILINOGEN NEGATIVE mg/dL (0.2-1.0)
[2017-01-21] MEDS ORDERED: ALBUTEROL SO4 2.5/IPRATROPIUM 0.5 INH SOL 3 ML VIAL.NEB. NEB ONE (12:00)
[2017-01-21] MEDS ORDERED: ALBUTEROL SO4 0.083% IH SOL 2.5 MG/3 ML VIAL.NEB. NEB ONE (12:05)
[2017-01-21] MEDS ORDERED: INSULIN REGULAR HUMAN 100 UNITS/ML *VIAL IVPUSH ONE (14:13)
[2017-01-21 15:45] VITALS: BP 127/75; PULSE 84
== END 2017-01-21 15:45 | disposition home or self-care (01) ==
LOC: JER 09:28
PROC: 3E0F7GC Introduction of Other Therapeutic Substance into Respiratory Tract, Via Natural or Artificial Opening (ICD-10-PCS; principal; 2017-01-21)
PROC: 3E033VG Introduction of Insulin into Peripheral Vein, Percutaneous Approach (ICD-10-PCS; 2017-01-21)
DX: E11.65 Type 2 diabetes mellitus with hyperglycemia (principal); Z79.84 Long term (current) use of oral hypoglycemic drugs; E78.00 Pure hypercholesterolemia, unspecified; F31.9 Bipolar disorder, unspecified; J44.9 Chronic obstructive pulmonary disease, unspecified; F17.210 Nicotine dependence, cigarettes, uncomplicated
CPT/HCPCS: 36415; 80053; 81003; 85025; 99283-25

== ENCOUNTER 2017-04-14 13:02 | Emergency (ER) | payer BC, OTHER ==
[2017-04-14 13:20] VITALS: BMI 29.6
[2017-04-14] MEDS ORDERED: KETOROLAC TROMETHAMINE 60 MG/2 ML VIAL IM ONE (13:26)
[2017-04-14] MEDS ORDERED: KETOROLAC TROMETHAMINE 60 MG/2 ML VIAL ONE (13:32)
--- NOTE | 2017-04-14 13:35 | PDOC ---
History of Present Illness - General Chief Complaint: Injury Stated Complaint: LEG LACERATION Time Seen by Provider: 04/14/17 13:07 History Source: Patient - History of Present Illness Occurred: reports: yesterday Pain Location: reports: lower extremity Past History - Past Medical History Allergies/Adverse Reactions: Allergies Allergy/AdvReac Type Severity Reaction Status Date / Time No Known Allergies Allergy Verified 04/14/17 13:11 Home Medications: Ambulatory Orders Buspirone HCl [Buspar -] 20 mg PO BID 07/28/16 Lamotrigine [Lamictal] 100 mg PO DAILY 07/28/16 Metformin HCl 1,000 mg PO BID 07/28/16 Clindamycin [Cleocin -] 300 mg PO Q6HPO #28 capsule 04/14/17 Liraglutide [Victoza -] 1.8 mg SQ DAILY@0700 04/14/17 COPD: Yes Diabetes: Yes Hypercholesterolemia: Yes Psychiatric Problems: Yes (bipolar) - Immunization History Immunization Up to Date: Yes - Suicide/Smoking/Psychosocial Hx Smoking History: Current every day smoker Number of Cigarettes Smoked Daily: 20 Information on smoking cessation initiated: No 'Breaking Loose' booklet given: 01/21/17 Hx Alcohol Use: Yes (occasionally, verbalized when stressed) Drug/Substance Use Hx: No Substance Use Type: None Review of Systems - Review of Systems ABD/GI: No: Nausea, Vomiting Neurological: No: Headache, Dizziness *Physical Exam - Vital Signs Last Vital Signs Temp Pulse Resp BP Pulse Ox 98.3 F 114 H 16 127/80 95 04/14/17 13:05 04/14/17 13:05 04/14/17 13:05 04/14/17 13:05 04/14/17 13:05 - Physical Exam General Appearance: Yes: Appropriately Dressed. No: Apparent Distress HEENT: positive: Normal Voice Neck: positive: Supple Respiratory/Chest: negative: Respiratory Distress Integumentary: positive: Dry, Warm, Other (~8 cm linear lac down to subcutaneous tissue to anterior aspect of LLE, pedal pulses intact, pt able to bear weight w/ intact strength) Neurologic: positive: Fully Oriented, Alert, Normal Mood/Affect ED Treatment Course - RADIOLOGY Radiology Studies Ordered: Category Date Time Status HEAD CT WITHOUT CONTRAST [CT] Stat CT Scan 04/14/17 13:27 Ordered LEG TIB/FIB-LEFT [RAD] Stat Radiology 04/14/17 13:26 Ordered Medical Decision Making - Medical Decision Making 04/14/17 13:30 56 yo F, h/o NIDDM, glaucoma, COPD, ?anxiety, here w/ LLE laceration. Pt states she was intoxicated at the time of the fall and fell onto broken glass at home this afternoon. Denies head injury, LOC, VILLALOBOS, dizziness, n/. Pt denies ETOH abuse but states she does not drink daily but that she drank today because of some difficulty at work last night and some problems w/ her family See exam Fall in setting of ETOH abuse Denies head injury Has significant laceration to LLE No e/o additional injuries -tetanus UTD -pain control -XR LLE r/o fb -CT head -lac repair (to be performed by resident) 04/14/17 14:05 04/14/17 16:55 Status post suture repair by ED resident (see procedure note). Patient to go home with antibiotics as per ED attending with wound check as needed in 48 hours. Rpt HR 96 and pt reports feeling significantly better. Pt stable for discharge at this time. 04/14/17 16:56 04/14/17 17:05 *DC/Admit/Observation/Transfer Diagnosis at time of Disposition: Leg laceration Qualifiers: Encounter type: initial encounter Laterality: left Qualified Code(s): S81.812A - Laceration without foreign body, left lower leg, initial encounter - Discharge Dispostion Disposition: HOME Condition at time of disposition: Good - Prescriptions Prescriptions: Clindamycin [Cleocin -] 300 mg PO Q6HPO #28 capsule - Referrals Referrals: STAFF,NOT ON [Primary Care Provider] - - Patient Instructions Printed Discharge Instructions: DI for Laceration Repair Additional Instructions: Keep dressing in place for at least 24 hours after which one can be opened to air. You can gently cleaned wound with mild soap and water after 24 hours to prevent crusting over the suture knots. You can also apply an antibiotic ointment twice a day until sutures are removed. Return for redness, discharge or fever Sutures are removed in 8-10 days - Post Discharge Activity Forms/Work/School Notes: Back to Work
[2017-04-14 17:05] VITALS: BP 148/88; TEMP 97.9
[2017-04-14 17:10] VITALS: PULSE 97
== END 2017-04-14 17:10 | disposition home or self-care (01) ==
LOC: JER 13:02
PROC: 3E0233Z Introduction of Anti-inflammatory into Muscle, Percutaneous Approach (ICD-10-PCS; principal; 2017-04-14)
PROC: 0HQLXZZ Repair Left Lower Leg Skin, External Approach (ICD-10-PCS; 2017-04-14)
DX: S81.812A Laceration without foreign body, left lower leg, initial encounter (principal); W01.110A Fall on same level from slipping, tripping and stumbling with subsequent striking against sharp glass, initial encounter; Y93.9 Activity, unspecified; Y92.009 Unspecified place in unspecified non-institutional (private) residence as the place of occurrence of the external cause; E11.9 Type 2 diabetes mellitus without complications; J44.9 Chronic obstructive pulmonary disease, unspecified
CPT/HCPCS: 70450-TC; 73590-TC-LT; 99282-25

== ENCOUNTER 2017-07-09 15:19 | Emergency (ER) | payer BC, OTHER ==
[2017-07-09 15:27] VITALS: BP 155/86; PULSE 100; TEMP 98; BMI 31.1
--- NOTE | 2017-07-09 15:27 | PDOC ---
Rapid Medical Evaluation Chief Complaint: Eye Problem Time Seen by Provider: 07/09/17 15:24 Medical Evaluation: Allergies Allergy/AdvReac Type Severity Reaction Status Date / Time No Known Allergies Allergy Verified 07/09/17 15:23 07/09/17 15:25 Pt presents to the ED with complaints of: worsening left retro orbital pressure with left sided headache and mild blurriness x 3 days, hx glaucoma, no change in drops, unable to get appt with opthal On brief exam: EOMI, PERRL Pt ordered for: none Pt to proceed to the ED Discharge Disposition - Diagnosis Blurred vision - Referrals - Patient Instructions - Post Discharge Activity
--- NOTE | 2017-07-09 16:37 | PDOC ---
History of Present Illness - General Chief Complaint: Eye Problem Stated Complaint: EYE PRESSURE Time Seen by Provider: 07/09/17 15:24 History Source: Patient Exam Limitations: No Limitations - History of Present Illness Initial Comments: CHIEF COMPLAINT: 56 y/o afebrile female with PMH poorly managed DM, and glaucoma c/o VILLALOBOS, left eye pressure and blurry vision x 3 days. HISTORY OF PRESENT ILLNESS: The patient went to urgent care today and was sent here for concern of glaucoma emergency. The patient denies f/c, earache, n/v/d , cough, CP, SOB, abd pain, back pain, neck pain, numbness/tingling in extremities, slurred speech, facial drooping. She has an appointment with her Statistical Engineer on 07/12/17. SHe has been applying her glaucoma drops as prescribed. Vital signs on arrival are notable for pulse of 100. REVIEW OF SYSTEMS: GENERAL/CONSTITUTIONAL: No fever/chills. No weakness. No weight change. HEAD, EYES, EARS, NOSE AND THROAT: +blurred vision and pressure behind left eye. No ear pain or discharge. No sore throat. MUSCULOSKELETAL: No joint or muscle swelling or pain. No neck or back pain. SKIN: No rash or easy bruising. NEUROLOGIC: + headache, vertigo, loss of consciousness, or loss of sensation. PHYSICAL EXAM: GENERAL: The patient is awake, alert, and fully oriented, in no acute distress. She is very well appearing, ambulatory, in NAD or obvious discomfort. HEAD: Normal with no signs of trauma. No hematomas. No pain with palpation of temporal regions. NECK: No c-spine TTP. No nuchal rigidity. ENT: EOMI b/l. Corneas are clear b/l without haziness. PERRLA b/l. No scleral erythema b/l. No proptosis or ptosis. SNELLEN: (with glasses) (R) 20/70 (L) 20/70 (B) 20/50 EXTREMITIES: Normal range of motion, no edema. NEUROLOGICAL: Normal speech, normal gait. CN II-XII grossly intact. No facial drooping. No slurred speech. SKIN: Warm, dry, normal turgor, no rashes or lesions noted. Past History - Past Medical History Allergies/Adverse Reactions: Allergies Allergy/AdvReac Type Severity Reaction Status Date / Time No Known Allergies Allergy Verified 07/09/17 15:23 Home Medications: Ambulatory Orders Buspirone HCl [Buspar -] 20 mg PO BID 07/28/16 Lamotrigine [Lamictal] 100 mg PO DAILY 07/28/16 Metformin HCl 1,000 mg PO BID 07/28/16 Liraglutide [Victoza -] 1.8 mg SQ DAILY@0700 04/14/17 COPD: Yes Diabetes: Yes Hypercholesterolemia: Yes Psychiatric Problems: Yes (bipolar) Other medical history: glucoma - Immunization History Immunization Up to Date: Yes - Suicide/Smoking/Psychosocial Hx Smoking History: Current every day smoker Have you smoked in the past 12 months: Yes Number of Cigarettes Smoked Daily: 20 Information on smoking cessation initiated: Yes 'Breaking Loose' booklet given: 07/09/17 Hx Alcohol Use: Yes (occasionally, verbalized when stressed) Drug/Substance Use Hx: No Substance Use Type: None *Physical Exam - Vital Signs Last Vital Signs Temp Pulse Resp BP Pulse Ox 98.0 F 100 H 18 155/86 100 07/09/17 15:23 07/09/17 15:23 07/09/17 15:23 07/09/17 15:23 07/09/17 15:23 Medical Decision Making - Medical Decision Making A/P: 56 y/o female with history of glaucoma here for 3 days of blurry vision of left eye with headache. We do not have a tonopen in the ER. Normal eye exam. Spoke with Dr. Robertson, Statistical Engineer seasonal driver, and discussed physical exam findings. She does not feel the patient even needs her eye pressure checked as she has no signs of a glaucoma emergency (hazy cornea, sluggish pupil, erythematous sclera). Discussed the case with Dr. Martinez and he agrees with discharge to home with her own ophtho follow up. Gave IM Toradol for headache. The patient states she feels much better after toradol and would like to go home. Instructed her to keep her f/u appointment scheduled for Wednesday07/13/17 and return to the ER with any worsening or concerning symptoms. The patient verbalizes understanding of all instructions, has no further questions and is awaiting discharge. right now *DC/Admit/Observation/Transfer Diagnosis at time of Disposition: Blurred vision Headache Qualifiers: Headache type: tension-type Headache chronicity pattern: acute headache Intractability: not intractable Qualified Code(s): G44.209 - Tension-type headache, unspecified, not intractable - Discharge Dispostion Disposition: HOME Condition at time of disposition: Improved - Referrals Referrals: Alvarez Funes [Primary Care Provider] - - Patient Instructions Printed Discharge Instructions: DI for Visual Field Disturbances, DI for Headache Additional Instructions: Discharge Instructions: -Take Motrin or Ibuprofen with food every 6 hours for headache. -Continue using your eye drops as prescribed -Keep your follow up appointment with your track repair person scheduled for next week. -Return to the ER with any worsening or concerning symptoms - Post Discharge Activity
[2017-07-09] MEDS ORDERED: KETOROLAC TROMETHAMINE 60 MG/2 ML VIAL IM ONE (17:26)
[2017-07-09] MEDS ORDERED: KETOROLAC TROMETHAMINE 60 MG/2 ML VIAL ONE (17:28)
== END 2017-07-09 18:25 | disposition home or self-care (01) ==
LOC: JERFT 15:19
PROC: 3E0233Z Introduction of Anti-inflammatory into Muscle, Percutaneous Approach (ICD-10-PCS; principal; 2017-07-09)
DX: G44.209 Tension-type headache, unspecified, not intractable (principal); H53.8 Other visual disturbances; E11.65 Type 2 diabetes mellitus with hyperglycemia; Z86.69 Personal history of other diseases of the nervous system and sense organs
CPT/HCPCS: 99281-25

== ENCOUNTER 2021-01-15 16:19 | Emergency (ER) | payer BC, OTHER ==
[2021-01-15 16:30] VITALS: BP 125/73; PULSE 76; TEMP 98.2; BMI 30.4
== END 2021-01-15 20:24 | disposition home or self-care (01) ==
LOC: JER 16:19
DX: S09.90XA Unspecified injury of head, initial encounter (principal)
CPT/HCPCS: 70450-TC; 99284-25

== ENCOUNTER 2023-06-14 13:50 | Inpatient (IN) | payer BC, OTHER ==
[2023-06-14 14:32] VITALS: BMI 30.4
[2023-06-14] MEDS: INSULIN ASPART SLIDING SCALE (NOVOLOG) 1 VIAL SQ SCH ×2 (16:50→22:52)
[2023-06-14 16:55] LABS: BASO % 0.7 % (0-2.0); EOS % 1.8 % (0-4.5); HEMATOCRIT 41.6 % (32.4-45.2); LYMPH % 33.3 % (8-40); MCH 28.9 pg (25.7-33.7); MCHC 33.8 g/dl (32.0-36.0); MEAN CELL VOLUME 85.5 fl (80-96); MEAN PLT VOLUME 8.5 fl (7.5-11.1); MONO % 10.1 % (3.8-10.2); NEUT % 54.1 % (42.8-82.8); PLATELET COUNT 240 10^3/uL (134-434); RBC 4.86 M/mm3 (3.60-5.2); RDW 13.3 % (11.6-15.6); WHITE BLOOD COUNT 6.2 K/mm3 (4.0-10.0)
[2023-06-14] MEDS: lamoTRIgine 100 MG TABLET PO SCH (22:50)
[2023-06-14] MEDS: GABAPENTIN 100 MG CAPSULE PO SCH (22:50)
[2023-06-14] MEDS: ATORVASTATIN CA 10 MG TABLET (FP) PO SCH (22:50)
[2023-06-14] MEDS: HEPARIN NA (PORCINE) 5,000 UNITS/ML 1ML VIAL SQ SCH (22:50)
[2023-06-15] MEDS: HEPARIN NA (PORCINE) 5,000 UNITS/ML 1ML VIAL SQ SCH ×3 (06:45→22:22)
[2023-06-15] MEDS: INSULIN ASPART SLIDING SCALE (NOVOLOG) 1 VIAL SQ SCH ×4 (07:53→22:24)
[2023-06-15 09:10] LABS: HEMATOCRIT 38.7 % (32.4-45.2); MCH 28.8 pg (25.7-33.7); MCHC 33.6 g/dl (32.0-36.0); MEAN PLT VOLUME 8.4 fl (7.5-11.1); PLATELET COUNT 208 10^3/uL (134-434); RDW 13.4 % (11.6-15.6); WHITE BLOOD COUNT 5.8 K/mm3 (4.0-10.0)
[2023-06-15 09:33] LABS: POTASSIUM 4.1 mmol/L (3.5-5.1)
[2023-06-15 09:35] LABS: CALCIUM 8.1 mg/dL (8.5-10.1)
[2023-06-15 09:36] LABS: BLOOD UREA NITROGEN 18.2 mg/dL (7-18)
[2023-06-15 09:39] LABS: CREATININE 0.8 mg/dL (0.55-1.3)
[2023-06-15] MEDS: LOSARTAN POTASSIUM 50 MG TABLET PO SCH (09:50)
[2023-06-15] MEDS: DULoxetine HCL 30 MG CAPSULE.DR PO SCH (09:50)
[2023-06-15] MEDS: ESCITALOPRAM OXALATE 10 MG TABLET PO SCH (09:50)
[2023-06-15] MEDS: hydrOXYzine PAMOATE 25 MG CAPSULE (FP) PO SCH (09:51)
[2023-06-15] MEDS ORDERED: FLU VACCINE (FLULAVAL) PF 60 MCG/0.5 ML SYRINGE 2023-2024 IM ONE (10:00)
[2023-06-15] MEDS: GABAPENTIN 100 MG CAPSULE PO SCH (22:22)
[2023-06-15] MEDS: lamoTRIgine 100 MG TABLET PO SCH (22:22)
[2023-06-15] MEDS: ATORVASTATIN CA 10 MG TABLET (FP) PO SCH (22:22)
[2023-06-16] MEDS: INSULIN ASPART SLIDING SCALE (NOVOLOG) 1 VIAL SQ SCH ×4 (06:21→22:32)
[2023-06-16] MEDS: HEPARIN NA (PORCINE) 5,000 UNITS/ML 1ML VIAL SQ SCH ×3 (06:22→22:27)
[2023-06-16 09:35] LABS: CHOLESTEROL 135 mg/dL (50-200)
[2023-06-16 09:36] LABS: LDL CHOLESTEROL (ONLY SJRH) 74 mg/dL (5-100)
[2023-06-16 09:38] LABS: HDL CHOLESTEROL 49 mg/dL (40-60)
[2023-06-16] MEDS: hydrOXYzine PAMOATE 25 MG CAPSULE (FP) PO SCH (09:56)
[2023-06-16] MEDS: LOSARTAN POTASSIUM 50 MG TABLET PO SCH (09:56)
[2023-06-16] MEDS: ESCITALOPRAM OXALATE 10 MG TABLET PO SCH (09:56)
[2023-06-16] MEDS: DULoxetine HCL 30 MG CAPSULE.DR PO SCH (09:56)
[2023-06-16] MEDS: CEFTRIAXONE 1 GM in DEXTROSE 5%-WATER - 50 ML IVPB SCH (14:05)
[2023-06-16] MEDS ORDERED: ACETAMINOPHEN 500 MG TABLET (FP) PO PRN (18:11)
[2023-06-16] MEDS ORDERED: ACETAMINOPHEN 1000 MG/100 ML BAG IVPB PRN (18:12)
[2023-06-16] MEDS: lamoTRIgine 100 MG TABLET PO SCH (22:28)
[2023-06-16] MEDS: ATORVASTATIN CA 10 MG TABLET (FP) PO SCH (22:28)
[2023-06-16] MEDS: GABAPENTIN 100 MG CAPSULE PO SCH (22:28)
[2023-06-16] MEDS: INSULIN (LEVEMIR) 100 UNITS/ML UNITS SQ SCH (22:33)
[2023-06-17] MEDS: INSULIN ASPART SLIDING SCALE (NOVOLOG) 1 VIAL SQ SCH ×4 (06:41→23:36)
[2023-06-17] MEDS: HEPARIN NA (PORCINE) 5,000 UNITS/ML 1ML VIAL SQ SCH (06:42)
[2023-06-17] MEDS: INSULIN (LEVEMIR) 100 UNITS/ML UNITS SQ SCH ×3 (07:00→23:41)
[2023-06-17] MEDS: CEFTRIAXONE 1 GM in DEXTROSE 5%-WATER - 50 ML IVPB SCH (10:18)
[2023-06-17] MEDS: DULoxetine HCL 30 MG CAPSULE.DR PO SCH (10:19)
[2023-06-17] MEDS: LOSARTAN POTASSIUM 50 MG TABLET PO SCH (10:19)
[2023-06-17] MEDS: ESCITALOPRAM OXALATE 10 MG TABLET PO SCH (10:19)
[2023-06-17] MEDS: hydrOXYzine PAMOATE 25 MG CAPSULE (FP) PO SCH (10:19)
[2023-06-17] MEDS: lamoTRIgine 100 MG TABLET PO SCH (21:14)
[2023-06-17] MEDS: GABAPENTIN 100 MG CAPSULE PO SCH (21:14)
[2023-06-17] MEDS: ATORVASTATIN CA 10 MG TABLET (FP) PO SCH (21:15)
[2023-06-18] MEDS: INSULIN ASPART SLIDING SCALE (NOVOLOG) 1 VIAL SQ SCH ×4 (06:55→23:38)
[2023-06-18] MEDS: INSULIN (LEVEMIR) 100 UNITS/ML UNITS SQ SCH ×2 (06:55→23:22)
[2023-06-18] MEDS ORDERED: LIDOCAINE HCL 1%, 10 MG/ML (20ML VIAL) ONE (07:24)
[2023-06-18] MEDS ORDERED: BUPIVACAINE HCL/PF 0.5% (5MG/ML) 10 ML VIAL ONE (07:24)
[2023-06-18] MEDS ORDERED: GENTAMICIN SO4 80 MG/2 ML VIAL ONE (07:51)
[2023-06-18] MEDS ORDERED: oxyCODONE HCL 5 MG TABLET PO PRN ×2 (08:37→10:16)
[2023-06-18] MEDS ORDERED: ONDANSETRON 4 MG/2 ML VIAL IVPUSH PRN ×2 (08:37→10:16)
[2023-06-18] MEDS ORDERED: MIDAZOLAM HCL 2 MG/2 ML SINGLE DOSE VIAL ONE (08:42)
[2023-06-18] MEDS ORDERED: PROPOFOL 20 ML ONE (08:42)
[2023-06-18] MEDS ORDERED: LACTATED RINGERS SOLUTION 1,000 ML IV SCH ×2 (08:45→10:16)
[2023-06-18] MEDS ORDERED: KETOROLAC TROMETHAMINE 30 MG/1 ML VIAL ONE (08:55)
[2023-06-18] MEDS ORDERED: LIDOCAINE HCL 1%, 10 MG/ML (20ML VIAL) INF ONE ×2 (08:58)
[2023-06-18] MEDS ORDERED: BUPIVACAINE HCL/PF 0.5% (5MG/ML) 10 ML VIAL IJ ONE ×2 (08:58)
[2023-06-18] MEDS: DULoxetine HCL 30 MG CAPSULE.DR PO SCH (10:00)
[2023-06-18] MEDS: LOSARTAN POTASSIUM 50 MG TABLET PO SCH (10:00)
[2023-06-18] MEDS: ESCITALOPRAM OXALATE 10 MG TABLET PO SCH (10:00)
[2023-06-18] MEDS: hydrOXYzine PAMOATE 25 MG CAPSULE (FP) PO SCH (10:00)
[2023-06-18] MEDS: CEFTRIAXONE 1 GM in DEXTROSE 5%-WATER - 50 ML IVPB SCH (10:00)
[2023-06-18] MEDS ORDERED: ACETAMINOPHEN 1000 MG/100 ML BAG IVPB PRN (10:16)
[2023-06-18 11:38] LABS: BASO % 0.2 % (0-2.0); EOS % 1.8 % (0-4.5); HEMATOCRIT 41.3 % (32.4-45.2); HEMOGLOBIN 14.1 GM/dL (10.7-15.3); LYMPH % 28.4 % (8-40); MCH 28.9 pg (25.7-33.7); MEAN CELL VOLUME 84.8 fl (80-96); MEAN PLT VOLUME 8.2 fl (7.5-11.1); MONO % 13.4 % (3.8-10.2); NEUT % 56.2 % (42.8-82.8); PLATELET COUNT 215 10^3/uL (134-434); RBC 4.87 M/mm3 (3.60-5.2); RDW 13.1 % (11.6-15.6)
[2023-06-18] MEDS ORDERED: BACITRACIN ZINC 15 GM TUBE TOPICAL OINTMENT TP ONE (20:20)
[2023-06-18] MEDS: lamoTRIgine 100 MG TABLET PO SCH (23:21)
[2023-06-18] MEDS: ATORVASTATIN CA 10 MG TABLET (FP) PO SCH (23:21)
[2023-06-18] MEDS: GABAPENTIN 100 MG CAPSULE PO SCH (23:21)
[2023-06-18] MEDS: ACETAMINOPHEN 500 MG TABLET (FP) PO PRN (23:36)
[2023-06-19] MEDS ORDERED: MELATONIN 5 MG TABLETS PO ONE (01:08)
[2023-06-19] MEDS: INSULIN ASPART SLIDING SCALE (NOVOLOG) 1 VIAL SQ SCH ×4 (06:42→22:05)
[2023-06-19] MEDS: INSULIN (LEVEMIR) 100 UNITS/ML UNITS SQ SCH ×2 (06:43→22:02)
[2023-06-19] MEDS: CEFTRIAXONE 1 GM in DEXTROSE 5%-WATER - 50 ML IVPB SCH (09:43)
[2023-06-19] MEDS: DULoxetine HCL 30 MG CAPSULE.DR PO SCH (09:44)
[2023-06-19] MEDS: ESCITALOPRAM OXALATE 10 MG TABLET PO SCH (09:44)
[2023-06-19] MEDS: LOSARTAN POTASSIUM 50 MG TABLET PO SCH (09:44)
[2023-06-19] MEDS: hydrOXYzine PAMOATE 25 MG CAPSULE (FP) PO SCH (09:45)
[2023-06-19] MEDS: BACITRACIN ZINC 15 GM TUBE TOPICAL OINTMENT TP SCH (09:47)
[2023-06-19 10:09] LABS: BASO % 0.3 % (0-2.0); EOS % 1.7 % (0-4.5); HEMATOCRIT 41.8 % (32.4-45.2); HEMOGLOBIN 14.1 GM/dL (10.7-15.3); LYMPH % 27.8 % (8-40); MCH 28.7 pg (25.7-33.7); MCHC 33.7 g/dl (32.0-36.0); MEAN CELL VOLUME 85.1 fl (80-96); MEAN PLT VOLUME 8.4 fl (7.5-11.1); NEUT % 56.2 % (42.8-82.8); PLATELET COUNT 213 10^3/uL (134-434); RBC 4.91 M/mm3 (3.60-5.2); RDW 13.2 % (11.6-15.6); WHITE BLOOD COUNT 5.9 K/mm3 (4.0-10.0)
[2023-06-19 10:28] LABS: POTASSIUM 4.3 mmol/L (3.5-5.1)
[2023-06-19 10:35] LABS: ALBUMIN 3.2 g/dl (3.4-5.0); BLOOD UREA NITROGEN 21.7 mg/dL (7-18); CALCIUM 8.7 mg/dL (8.5-10.1)
[2023-06-19 10:37] LABS: BILIRUBIN,TOTAL 0.4 mg/dL (0.2-1)
[2023-06-19 10:39] LABS: CREATININE 0.9 mg/dL (0.55-1.3)
[2023-06-19] MEDS: ACETAMINOPHEN 500 MG TABLET (FP) PO PRN (16:01)
[2023-06-19] MEDS: ATORVASTATIN CA 10 MG TABLET (FP) PO SCH (22:02)
[2023-06-19] MEDS: lamoTRIgine 100 MG TABLET PO SCH (22:04)
[2023-06-19] MEDS: GABAPENTIN 100 MG CAPSULE PO SCH (22:06)
[2023-06-20] MEDS: INSULIN (LEVEMIR) 100 UNITS/ML UNITS SQ SCH ×2 (08:08→23:21)
[2023-06-20] MEDS: INSULIN ASPART SLIDING SCALE (NOVOLOG) 1 VIAL SQ SCH ×4 (08:09→23:18)
[2023-06-20] MEDS: DULoxetine HCL 30 MG CAPSULE.DR PO SCH (11:11)
[2023-06-20] MEDS: LOSARTAN POTASSIUM 50 MG TABLET PO SCH (11:11)
[2023-06-20] MEDS: ESCITALOPRAM OXALATE 10 MG TABLET PO SCH (11:11)
[2023-06-20] MEDS: BACITRACIN ZINC 15 GM TUBE TOPICAL OINTMENT TP SCH (11:11)
[2023-06-20] MEDS: CEFTRIAXONE 1 GM in DEXTROSE 5%-WATER - 50 ML IVPB SCH (11:11)
[2023-06-20] MEDS: hydrOXYzine PAMOATE 25 MG CAPSULE (FP) PO SCH (11:13)
[2023-06-20] MEDS: lamoTRIgine 100 MG TABLET PO SCH (22:57)
[2023-06-20] MEDS: ATORVASTATIN CA 10 MG TABLET (FP) PO SCH (22:57)
[2023-06-20] MEDS: GABAPENTIN 100 MG CAPSULE PO SCH (22:58)
[2023-06-20 23:16] VITALS: RESP 17
[2023-06-21] MEDS: ACETAMINOPHEN 500 MG TABLET (FP) PO PRN (00:10)
[2023-06-21 06:30] VITALS: BP 104/56; PULSE 72; TEMP 98.1
[2023-06-21] MEDS: INSULIN ASPART SLIDING SCALE (NOVOLOG) 1 VIAL SQ SCH ×2 (06:53→11:46)
[2023-06-21] MEDS: INSULIN (LEVEMIR) 100 UNITS/ML UNITS SQ SCH (06:54)
[2023-06-21] MEDS: CEFTRIAXONE 1 GM in DEXTROSE 5%-WATER - 50 ML IVPB SCH (10:09)
[2023-06-21] MEDS: DULoxetine HCL 30 MG CAPSULE.DR PO SCH (10:10)
[2023-06-21] MEDS: ESCITALOPRAM OXALATE 10 MG TABLET PO SCH (10:10)
[2023-06-21] MEDS: LOSARTAN POTASSIUM 50 MG TABLET PO SCH (10:10)
[2023-06-21] MEDS: hydrOXYzine PAMOATE 25 MG CAPSULE (FP) PO SCH (10:10)
[2023-06-21] MEDS: BACITRACIN ZINC 15 GM TUBE TOPICAL OINTMENT TP SCH (10:11)
== END 2023-06-21 16:45 | disposition home or self-care (01) | DRG 617 ==
LOC: JER 13:50 → JERBED 16:17 → J5S 21:40
PROVIDERS: ADMIT Internal Medicine; ATTEND Internal Medicine
PROC: 0Y6U0Z3 Detachment at Left 3rd Toe, Low, Open Approach (ICD-10-PCS; principal; 2023-06-18 08:30)
DX: E11.69 Type 2 diabetes mellitus with other specified complication (principal); E11.52 Type 2 diabetes mellitus with diabetic peripheral angiopathy with gangrene; I96 Gangrene, not elsewhere classified; M86.172 Other acute osteomyelitis, left ankle and foot; E11.621 Type 2 diabetes mellitus with foot ulcer; L97.529 Non-pressure chronic ulcer of other part of left foot with unspecified severity; I10 Essential (primary) hypertension; F31.9 Bipolar disorder, unspecified; E11.65 Type 2 diabetes mellitus with hyperglycemia
CPT/HCPCS: 36415; 73610-TC-LT-FY; 73630-TC-LT; 73718-TC-LT; 80048; 80053; 80061; 82550; 82553; 82962; 83036; 84479; 84484; 85025; 85027; 85651; 86140; 88305-TC; 88311-TC; 90686; 93005; 93010; 93926-TC; 94760; 99285-25; G0008; J1644

== ENCOUNTER 2023-09-03 04:27 | Day surgery (SDC) | payer BC, OTHER ==
[2023-08-30 15:02] VITALS: BMI 30.4
[2023-09-03 07:29] VITALS: RESP 18
[2023-09-03] MEDS ORDERED: PROPOFOL 20 ML ONE (10:18)
[2023-09-03] MEDS ORDERED: MIDAZOLAM HCL 2 MG/2 ML SINGLE DOSE VIAL ONE (10:18)
[2023-09-03] MEDS ORDERED: LIDOCAINE HCL 1%, 10 MG/ML (20ML VIAL) ONE (10:20)
[2023-09-03] MEDS ORDERED: GENTAMICIN SO4 80 MG/2 ML VIAL ONE (10:20)
[2023-09-03] MEDS ORDERED: PROMETHAZINE HCL 25 MG/1 ML VIAL IVPB PRN (10:21)
[2023-09-03] MEDS ORDERED: ONDANSETRON 4 MG/2 ML VIAL IVPUSH PRN (10:21)
[2023-09-03] MEDS ORDERED: ACETAMINOPHEN 1000 MG/100 ML BAG IVPB PRN (10:21)
[2023-09-03] MEDS ORDERED: oxyCODONE HCL 5 MG TABLET PO PRN ×2 (10:21)
[2023-09-03] MEDS ORDERED: ceFAZolin SODIUM 1 GM VIAL ONE (10:27)
[2023-09-03] MEDS ORDERED: KETOROLAC TROMETHAMINE 30 MG/1 ML VIAL ONE (10:27)
[2023-09-03] MEDS ORDERED: LACTATED RINGERS SOLUTION 1,000 ML IV SCH (10:30)
[2023-09-03] MEDS: LIDOCAINE HCL 1%, 10 MG/ML (20ML VIAL) INF ONE (10:35)
[2023-09-03] MEDS: BUPIVACAINE HCL/PF 0.5% (5MG/ML) 10 ML VIAL IJ ONE (10:35)
[2023-09-03] MEDS: ceFAZolin SODIUM 1 GM VIAL IVPB ONE (10:38)
[2023-09-03] MEDS: GENTAMICIN SO4 80 MG/2 ML VIAL IVPB ONE (11:10)
[2023-09-03] MEDS: DEXAMETHASONE SOD PHOSPHATE 4 MG/1 ML VIAL IM ONE (11:10)
[2023-09-03 11:45] VITALS: TEMP 97.3
[2023-09-03 12:31] VITALS: BP 112/65; PULSE 71
== END 2023-09-03 13:42 | disposition home or self-care (01) ==
LOC: JASU-SURG 04:27
PROVIDERS: ATTEND Podiatrist Foot Surgery
PROC: 0SQQ0ZZ Repair Left Toe Phalangeal Joint, Open Approach (ICD-10-PCS; principal; 2023-09-03 09:00)
DX: M20.42 Other hammer toe(s) (acquired), left foot (principal)
CPT/HCPCS: 73630-TC-LT; 82962; 88305-TC; 88311-TC

== ENCOUNTER 2023-09-26 12:18 | Inpatient (IN) | payer BC, OTHER ==
[2023-09-26] MEDS ORDERED: VANCOMYCIN HCL 1,500 MG in DEXTROSE 5%-WATER - 500 ML IVPB ONE (13:00)
[2023-09-26] MEDS ORDERED: CEFEPIME 1 GM/100 ML BAG IVPB ONE (13:11)
[2023-09-26] MEDS: CEFEPIME HCL 1 GM VIAL (RESTRICTED TO ID) IVPB ONE (13:19)
[2023-09-26 13:27] LABS: BASO % 0.4 % (0-2.0); EOS % 4.1 % (0-4.5); HEMATOCRIT 42.7 % (32.4-45.2); HEMOGLOBIN 14.5 GM/dL (10.7-15.3); LYMPH % 29.5 % (8-40); MCH 29.3 pg (25.7-33.7); MCHC 33.9 g/dl (32.0-36.0); MEAN CELL VOLUME 86.6 fl (80-96); MEAN PLT VOLUME 8.7 fl (7.5-11.1); MONO % 9.9 % (3.8-10.2); NEUT % 56.1 % (42.8-82.8); PLATELET COUNT 237 10^3/uL (134-434); RBC 4.93 M/mm3 (3.60-5.2); RDW 13.4 % (11.6-15.6); WHITE BLOOD COUNT 5.9 K/mm3 (4.0-10.0)
[2023-09-26 13:36] LABS: PROTHROMBIN TIME (PATIENT) 11.6 SEC (9.7-13.0)
[2023-09-26 13:39] LABS: ACTIVATED PTT 33.7 SECONDS (25.2-36.5)
[2023-09-26 13:45] LABS: POTASSIUM 4.6 mmol/L (3.5-5.1)
[2023-09-26 13:47] LABS: CALCIUM 9.7 mg/dL (8.5-10.1)
[2023-09-26 13:48] LABS: ALBUMIN 3.7 g/dl (3.4-5.0); BLOOD UREA NITROGEN 22.4 mg/dL (7-18)
[2023-09-26 13:51] LABS: CREATININE 0.8 mg/dL (0.55-1.3)
[2023-09-26 13:52] LABS: BILIRUBIN,TOTAL 0.3 mg/dL (0.2-1); TOT PROT 6.5 g/dl (6.4-8.2)
[2023-09-26] MEDS: VANCOMYCIN PREMIX 1.5 GM 1,500 MG/300 ML BAG IVPB ONE (14:22)
[2023-09-26 17:06] VITALS: BMI 30.7
[2023-09-26] MEDS: HEPARIN NA (PORCINE) 5,000 UNITS/ML 1ML VIAL SQ SCH (23:03)
[2023-09-26] MEDS: INSULIN (LEVEMIR) 100 UNITS/ML UNITS SQ SCH (23:04)
[2023-09-26] MEDS: lamoTRIgine 100 MG TABLET PO SCH (23:06)
[2023-09-26] MEDS: ATORVASTATIN CA 10 MG TABLET (FP) PO SCH (23:06)
[2023-09-26] MEDS: GABAPENTIN 100 MG CAPSULE PO SCH (23:06)
[2023-09-27] MEDS: ACETAMINOPHEN 325 MG TABLET (FP) PO PRN (07:10)
[2023-09-27] MEDS ORDERED: hydrOXYzine PAMOATE 25 MG CAPSULE (FP) PO ONE (09:01)
[2023-09-27 09:30] LABS: BASO % 0.8 % (0-2.0); EOS % 3.8 % (0-4.5); HEMATOCRIT 42.3 % (32.4-45.2); HEMOGLOBIN 14.1 GM/dL (10.7-15.3); LYMPH % 36.3 % (8-40); MCH 29.1 pg (25.7-33.7); MCHC 33.3 g/dl (32.0-36.0); MEAN CELL VOLUME 87.4 fl (80-96); MEAN PLT VOLUME 8.7 fl (7.5-11.1); MONO % 10.7 % (3.8-10.2); NEUT % 48.4 % (42.8-82.8); PLATELET COUNT 234 10^3/uL (134-434); RBC 4.84 M/mm3 (3.60-5.2)
[2023-09-27] MEDS: DULoxetine HCL 30 MG CAPSULE.DR PO SCH (09:32)
[2023-09-27] MEDS: LOSARTAN POTASSIUM 50 MG TABLET PO SCH (09:32)
[2023-09-27 09:51] LABS: POTASSIUM 4.3 mmol/L (3.5-5.1)
[2023-09-27] MEDS: hydrOXYzine PAMOATE 25 MG CAPSULE (FP) PO SCH (09:55)
[2023-09-27 09:56] LABS: CALCIUM 9.7 mg/dL (8.5-10.1)
[2023-09-27 09:57] LABS: ALBUMIN 3.7 g/dl (3.4-5.0); BLOOD UREA NITROGEN 23.4 mg/dL (7-18)
[2023-09-27 09:59] LABS: BILIRUBIN,TOTAL 0.2 mg/dL (0.2-1); TOT PROT 6.6 g/dl (6.4-8.2)
[2023-09-27 10:00] LABS: CREATININE 0.8 mg/dL (0.55-1.3)
[2023-09-27] MEDS ORDERED: hydrOXYzine PAMOATE 50 MG CAPSULE (FP) PO SCH (10:00)
[2023-09-27] MEDS: CEFTRIAXONE 1 GM in DEXTROSE 5%-WATER - 50 ML IVPB SCH (12:53)
[2023-09-27] MEDS ORDERED: INSULIN (NOVOLOG) ASPART 100 UNITS/ML 10ML VIAL ONE (18:11)
[2023-09-27] MEDS: INSULIN ASPART SLIDING SCALE (NOVOLOG) 1 VIAL SQ SCH (18:15)
[2023-09-27] MEDS: INSULIN (LEVEMIR) 100 UNITS/ML UNITS SQ ONE ×2 (18:15→23:39)
[2023-09-28] MEDS ORDERED: BUPIVACAINE HCL/PF 0.5% (5MG/ML) 10 ML VIAL ONE (07:05)
[2023-09-28] MEDS ORDERED: LIDOCAINE HCL 1%, 10 MG/ML (20ML VIAL) ONE (07:05)
[2023-09-28] MEDS ORDERED: oxyCODONE HCL 5 MG TABLET PO PRN ×3 (07:23→08:48)
[2023-09-28] MEDS ORDERED: ONDANSETRON 4 MG/2 ML VIAL IVPUSH PRN ×2 (07:23→08:48)
[2023-09-28] MEDS ORDERED: GENTAMICIN SO4 80 MG/2 ML VIAL ONE (07:24)
[2023-09-28] MEDS ORDERED: MIDAZOLAM HCL 2 MG/2 ML SINGLE DOSE VIAL ONE (07:25)
[2023-09-28] MEDS ORDERED: FENTANYL CITRATE/PF 50 MCG/ML VIAL ONE (07:25)
[2023-09-28] MEDS ORDERED: PROPOFOL 20 ML ONE (07:25)
[2023-09-28] MEDS: GENTAMICIN SO4 80 MG/2 ML VIAL IVPB ONE (08:02)
[2023-09-28] MEDS: LIDOCAINE HCL 1%, 10 MG/ML (20ML VIAL) INF ONE (08:02)
[2023-09-28] MEDS ORDERED: KETOROLAC TROMETHAMINE 30 MG/1 ML VIAL ONE (08:12)
[2023-09-28] MEDS: BUPIVACAINE HCL/PF 0.5% (5MG/ML) 10 ML VIAL IJ ONE ×2 (08:14)
[2023-09-28] MEDS ORDERED: [UNRECOGNIZED DRUG - OTHER] PO SCH (10:00)
[2023-09-28] MEDS ORDERED: PATIENT'S OWN MEDICATION (NON-FORMULARY) (Dapagliflozin Propanediol 10 MG) PO SCH (10:00)
[2023-09-28] MEDS: CEFTRIAXONE 1 GM in DEXTROSE 5%-WATER - 50 ML IVPB SCH (11:00)
[2023-09-28] MEDS: hydrOXYzine PAMOATE 25 MG CAPSULE (FP) PO SCH (11:07)
[2023-09-28] MEDS: LOSARTAN POTASSIUM 50 MG TABLET PO SCH (11:08)
[2023-09-28] MEDS: DULoxetine HCL 30 MG CAPSULE.DR PO SCH (11:08)
[2023-09-28] MEDS: HEPARIN NA (PORCINE) 5,000 UNITS/ML 1ML VIAL SQ SCH (11:09)
[2023-09-28] MEDS: LACTATED RINGERS SOLUTION 1,000 ML IV SCH ×2 (11:40→14:55)
[2023-09-28] MEDS ORDERED: INSULIN (NOVOLOG) ASPART 100 UNITS/ML 10ML VIAL ONE ×2 (12:25→17:00)
[2023-09-28] MEDS: INSULIN ASPART SLIDING SCALE (NOVOLOG) 1 VIAL SQ SCH (12:34)
[2023-09-28] MEDS: PATIENT'S OWN MEDICATION (NON-FORMULARY) (Omadacycline Tosylate [Nuzyra] 150 MG Tablet) PO SCH (14:55)
[2023-09-28] MEDS: PATIENT'S OWN MEDICATION (NON-FORMULARY) (Dapagliflozin Propanediol 10 MG Tablet) PO SCH (14:55)
[2023-09-28] MEDS: oxyCODONE HCL 5 MG TABLET PO PRN (18:41)
[2023-09-28] MEDS: lamoTRIgine 100 MG TABLET PO SCH (21:51)
[2023-09-28] MEDS: GABAPENTIN 100 MG CAPSULE PO SCH (21:51)
[2023-09-28] MEDS: ATORVASTATIN CA 10 MG TABLET (FP) PO SCH (21:51)
[2023-09-28] MEDS: INSULIN (LEVEMIR) 100 UNITS/ML UNITS SQ SCH (22:43)
[2023-09-29] MEDS ORDERED: INSULIN (NOVOLOG) ASPART 100 UNITS/ML 10ML VIAL ONE (12:19)
[2023-09-29] MEDS: AMOX TR/POT CLAV 500MG/125MG TABLETS (FP) PO ONE (14:03)
[2023-09-29 14:15] VITALS: RESP 18
[2023-09-29] MEDS: AMOX TR/POT CLAV 500MG/125MG TABLETS (FP) PO SCH (17:55)
[2023-09-29] MEDS: ACETAMINOPHEN 325 MG TABLET (FP) PO PRN (19:11)
[2023-09-30 17:08] VITALS: BP 103/64; PULSE 77; TEMP 98.6
== END 2023-09-30 17:11 | disposition home or self-care (01) | DRG 580 ==
LOC: JER 12:18 → JERBED 12:44 → J8W 16:28
PROVIDERS: ADMIT Internal Medicine; ATTEND Internal Medicine
PROC: 0Y6N0Z5 Detachment at Left Foot, Complete 2nd Ray, Open Approach (ICD-10-PCS; principal; 2023-09-28 07:30)
DX: S91.109A Unspecified open wound of unspecified toe(s) without damage to nail, initial encounter (principal); M86.672 Other chronic osteomyelitis, left ankle and foot; E11.65 Type 2 diabetes mellitus with hyperglycemia; F31.9 Bipolar disorder, unspecified; L08.89 Other specified local infections of the skin and subcutaneous tissue; F17.210 Nicotine dependence, cigarettes, uncomplicated; L03.032 Cellulitis of left toe; X58.XXXA Exposure to other specified factors, initial encounter; Y93.9 Activity, unspecified; Y92.9 Unspecified place or not applicable; Y99.9 Unspecified external cause status; Z89.422 Acquired absence of other left toe(s)
CPT/HCPCS: 36415; 73630-TC-LT; 80053; 82962; 85025; 85610; 85730; 86850; 86900; 86901; 88305-TC; 88311-TC; 93005; 93010; 94760; 99285-25; J1644

== ENCOUNTER 2023-10-29 13:39 | Inpatient (IN) | payer BC, OTHER ==
[2023-10-29] MEDS ORDERED: ACETAMINOPHEN INJECTION 100 ML IVPB ONE (16:07)
[2023-10-29] MEDS ORDERED: PIPERACILLIN/TAZOB 4.5 GM 4.5 GM/100 ML BAG IVPB ONE (16:07)
[2023-10-29] MEDS ORDERED: VANCOMYCIN/WATER 1250 MG 1,250 MG/250 ML BAG IVPB ONE (16:07)
[2023-10-29] MEDS: PIPERACILLIN/TAZOB 4.5 GM 4.5 GM in DEXTROSE 5%-WATER 100 ML IVPB ONE (16:31)
[2023-10-29] MEDS: ACETAMINOPHEN 1000 MG/100 ML BAG IVPB ONE (16:32)
[2023-10-29] MEDS: VANCOMYCIN/WATER 1250 MG 1,250 MG/250 ML BAG IVPB ONE (16:42)
[2023-10-29 16:43] LABS: BASO % 0.6 % (0-2.0); EOS % 1.7 % (0-4.5); HEMATOCRIT 42.9 % (32.4-45.2); HEMOGLOBIN 14.4 GM/dL (10.7-15.3); LYMPH % 27.6 % (8-40); MCH 29.3 pg (25.7-33.7); MCHC 33.6 g/dl (32.0-36.0); MEAN CELL VOLUME 86.9 fl (80-96); MEAN PLT VOLUME 8.2 fl (7.5-11.1); MONO % 10.2 % (3.8-10.2); NEUT % 59.9 % (42.8-82.8); PLATELET COUNT 271 10^3/uL (134-434); RBC 4.94 M/mm3 (3.60-5.2); RDW 12.9 % (11.6-15.6); WHITE BLOOD COUNT 8.8 K/mm3 (4.0-10.0)
[2023-10-29 17:07] LABS: POTASSIUM 4.5 mmol/L (3.5-5.1)
[2023-10-29 17:10] LABS: ALBUMIN 3.6 g/dl (3.4-5.0); CALCIUM 9.3 mg/dL (8.5-10.1)
[2023-10-29 17:11] LABS: BLOOD UREA NITROGEN 24.1 mg/dL (7-18)
[2023-10-29 17:13] LABS: CREATININE 0.7 mg/dL (0.55-1.3)
[2023-10-29 17:15] LABS: BILIRUBIN,TOTAL 0.3 mg/dL (0.2-1); TOT PROT 6.7 g/dl (6.4-8.2)
[2023-10-29] MEDS ORDERED: DOCUSATE SODIUM 100 MG CAPSULE (FP) PO PRN (20:44)
[2023-10-29 21:17] VITALS: BMI 30.1
[2023-10-29] MEDS: ACETAMINOPHEN 1000 MG/100 ML BAG IVPB PRN (22:01)
[2023-10-29] MEDS: INSULIN ASPART SLIDING SCALE (NOVOLOG) 1 VIAL SQ SCH (22:03)
[2023-10-30] MEDS: PIPERACILLIN/TAZOB 3.375 GM 3.375 GM in DEXTROSE 5%-WATER - 50 ML IVPB SCH (02:57)
[2023-10-30 08:56] LABS: INR 0.93 (0.83-1.09); PROTHROMBIN TIME (PATIENT) 10.5 SEC (9.7-13.0)
[2023-10-30 08:56] LABS: BASO % 0.3 % (0-2.0); EOS % 2.8 % (0-4.5); HEMATOCRIT 39.8 % (32.4-45.2); HEMOGLOBIN 13.6 GM/dL (10.7-15.3); LYMPH % 34.6 % (8-40); MCH 29.3 pg (25.7-33.7); MCHC 34.2 g/dl (32.0-36.0); MEAN CELL VOLUME 85.6 fl (80-96); MEAN PLT VOLUME 8.4 fl (7.5-11.1); MONO % 12.5 % (3.8-10.2); NEUT % 49.8 % (42.8-82.8); PLATELET COUNT 237 10^3/uL (134-434); RBC 4.65 M/mm3 (3.60-5.2); WHITE BLOOD COUNT 5.5 K/mm3 (4.0-10.0)
[2023-10-30 08:59] LABS: ACTIVATED PTT 33.1 SECONDS (25.2-36.5)
[2023-10-30 09:02] LABS: POTASSIUM 4.4 mmol/L (3.5-5.1)
[2023-10-30 09:26] LABS: CALCIUM 8.9 mg/dL (8.5-10.1)
[2023-10-30 09:27] LABS: BLOOD UREA NITROGEN 22.1 mg/dL (7-18)
[2023-10-30 09:28] LABS: MAGNESIUM 2.4 mg/dL (1.8-2.4)
[2023-10-30 09:30] LABS: CREATININE 0.9 mg/dL (0.55-1.3)
[2023-10-30] MEDS: DULoxetine HCL 30 MG CAPSULE.DR PO SCH (09:42)
[2023-10-30] MEDS ORDERED: hydrOXYzine PAMOATE 25 MG CAPSULE (FP) PO PRN (10:00)
[2023-10-30 10:24] VITALS: RESP 18
[2023-10-30] MEDS: HEPARIN NA (PORCINE) 5,000 UNITS/ML 1ML VIAL SQ SCH (15:58)
[2023-10-30] MEDS: VANCOMYCIN/WATER 1250 MG 1,250 MG/250 ML BAG IVPB SCH (17:24)
[2023-10-30] MEDS: ATORVASTATIN CA 10 MG TABLET (FP) PO SCH (21:44)
[2023-10-30] MEDS: lamoTRIgine 100 MG TABLET PO SCH (21:44)
[2023-10-30] MEDS: GABAPENTIN 100 MG CAPSULE PO SCH (21:44)
[2023-10-30] MEDS: ACETAMINOPHEN 325 MG TABLET (FP) PO PRN (21:45)
[2023-10-31 07:55] LABS: POTASSIUM 4.5 mmol/L (3.5-5.1)
[2023-10-31 08:02] LABS: ALBUMIN 3.2 g/dl (3.4-5.0); CALCIUM 8.7 mg/dL (8.5-10.1)
[2023-10-31 08:03] LABS: BLOOD UREA NITROGEN 16.8 mg/dL (7-18)
[2023-10-31 08:06] LABS: BILIRUBIN,TOTAL 0.4 mg/dL (0.2-1); CREATININE 0.8 mg/dL (0.55-1.3)
[2023-10-31 08:08] LABS: TOT PROT 5.6 g/dl (6.4-8.2)
[2023-10-31] MEDS: PIPERACILLIN/TAZOB 3.375 GM 3.375 GM in DEXTROSE 5%-WATER - 50 ML IVPB SCH (12:28)
[2023-10-31] MEDS: VANCOMYCIN/WATER 1250 MG 1,250 MG/250 ML BAG IVPB SCH (12:29)
[2023-10-31] MEDS: COLCHICINE 0.6 MG TAB PO SCH (13:51)
[2023-10-31] MEDS: CEFTRIAXONE 2 GM in DEXTROSE 5%-WATER 100 ML IVPB SCH (16:28)
[2023-11-01 06:37] VITALS: BP 118/58; PULSE 68; TEMP 97.9
[2023-11-01] MEDS ORDERED: PATIENT'S OWN MEDICATION (NON-FORMULARY) (Dapagliflozin Propanediol 10 MG Tablet) PO SCH (10:00)
[2023-11-01] MEDS: metFORMIN HCL 500 MG TABLET (FP) PO SCH (10:29)
== END 2023-11-01 11:30 | disposition home or self-care (01) | DRG 566 ==
LOC: JER 13:39 → JERBED 17:43 → J5S 20:58
PROVIDERS: ADMIT Internal Medicine; ATTEND Family Medicine
DX: T87.44 Infection of amputation stump, left lower extremity (principal); Y83.9 Surgical procedure, unspecified as the cause of abnormal reaction of the patient, or of later complication, without mention of misadventure at the time of the procedure; I10 Essential (primary) hypertension; E11.40 Type 2 diabetes mellitus with diabetic neuropathy, unspecified; F31.9 Bipolar disorder, unspecified; F32.9 Major depressive disorder, single episode, unspecified; F17.210 Nicotine dependence, cigarettes, uncomplicated; M79.672 Pain in left foot
CPT/HCPCS: 36415; 73630-TC-LT; 80048; 80053; 80061; 82962; 83036; 83735; 84100; 84550; 85025; 85610; 85651; 85730; 86140; 87040; 93005; 93010; 99285-25; J0131; J1644

== ENCOUNTER 2024-11-30 00:57 | Inpatient (IN) | payer OTHER ==
[2024-11-30] MEDS ORDERED: morphine SULFATE 4 MG/ML VIAL ONE ×2 (01:45→02:56)
[2024-11-30] MEDS ORDERED: ONDANSETRON 4 MG/2 ML VIAL ONE (01:45)
[2024-11-30] MEDS: ONDANSETRON 4 MG/2 ML VIAL IVPUSH ONE (01:56)
[2024-11-30] MEDS: SODIUM CHLORIDE 0.9% 500 ML INFUS.BAG IV ONE (01:56)
[2024-11-30] MEDS: morphine CARPU-JECT 4 MG/1 ML DISP.SYRIN IVPUSH ONE ×2 (01:56→03:10)
[2024-11-30 01:59] LABS: ABSOLUTE IMMATURE GRANULOCYTES 0.04 x10^3/uL (0.0-0.031); BASOPHILS # 0.03 x10^3/uL (0.01-0.08); EOSINOPHIL % 1.9 % (0.7-5.8); EOSINOPHILS # 0.14 x10^3/uL (0.04-0.36); HEMATOCRIT 40.7 % (34.1-44.9); HEMOGLOBIN 13.1 g/dL (11.2-15.7); MCHC 32.2 g/dl (32.2-35.5); MEAN CELL VOLUME 88.7 fl (79.4-94.8); MEAN PLT VOLUME 9.6 fl (9.4-12.3); MONOCYTE # 0.94 x10^3/uL (0.24-0.86); MONOCYTE % 12.9 % (4.7-12.5); PLATELET COUNT 248 x10^3/uL (182-369); RDW 13.1 % (12.4-16.4)
[2024-11-30 02:14] LABS: POTASSIUM 4.2 mmol/L (3.5-5.1)
[2024-11-30 02:16] LABS: ALBUMIN 4.2 g/dl (3.4-5.0); CALCIUM 9.7 mg/dL (8.5-10.1)
[2024-11-30 02:17] LABS: BLOOD UREA NITROGEN 30.5 mg/dL (7-18)
[2024-11-30 02:19] LABS: CREATININE 1.5 mg/dL (0.55-1.3)
[2024-11-30 02:21] LABS: BILIRUBIN,TOTAL 0.4 mg/dL (0.2-1); TOT PROT 6.7 g/dl (6.4-8.2)
[2024-11-30] MEDS ORDERED: MORPHINE SULFATE 2 MG/ML SYRINGE ONE (06:25)
[2024-11-30] MEDS: morphine CARPU-JECT 2 MG/1 ML DISP.SYRIN IVPUSH ONE (06:30)
[2024-11-30] MEDS ORDERED: ACETAMINOPHEN INJECTION 100 ML ONE (09:37)
[2024-11-30] MEDS: ACETAMINOPHEN 1000 MG/100 ML BAG IVPB SCH (09:42)
[2024-11-30] MEDS ORDERED: lamoTRIgine 100 MG TABLET PO SCH (10:00)
[2024-11-30] MEDS ORDERED: POLYETHYLENE GLYCOL (HEALTHYLAX) 3350 17 GM PACKET PO SCH (10:00)
[2024-11-30] MEDS ORDERED: LOSARTAN POTASSIUM 50 MG TABLET PO SCH (10:00)
[2024-11-30] MEDS ORDERED: EMPAGLIFLOZIN (JARDIANCE) 25 MG TABLET PO SCH (10:00)
[2024-11-30] MEDS: SODIUM CHLORIDE 1,000 ML IV STA (10:18)
[2024-11-30] MEDS ORDERED: SENNOSIDES 8.6MG TABLET (FP) PO ONE (10:43)
[2024-11-30] MEDS ORDERED: lamoTRIgine 25 MG TABLET ONE (10:43)
[2024-11-30] MEDS ORDERED: lamoTRIgine 100 MG TABLET ONE (10:43)
[2024-11-30] MEDS ORDERED: POLYETHYLENE GLYCOL (HEALTHYLAX) 3350 17 GM PACKET ONE (10:43)
[2024-11-30] MEDS: LAMOTRIGINE 100 MG, LAMOTRIGINE 25 MG PO SCH (10:54)
[2024-11-30] MEDS: POLYETHYLENE GLYCOL (HEALTHYLAX) 3350 17 GM PACKET PO SCH ×2 (10:54→21:18)
[2024-11-30] MEDS: SENNOSIDES 8.6MG TABLET (FP) PO ONE ×2 (10:54→11:35)
[2024-11-30] MEDS ORDERED: ALPRAZolam 1 MG TABLET ONE (11:24)
[2024-11-30] MEDS: ALPRAZolam 1 MG TABLET PO SCH (11:31)
[2024-11-30] MEDS: SENNOSIDES 8.8 MG/5 ML SYRUP PO SCH (11:35)
[2024-11-30] MEDS: INSULIN ASPART SLIDING SCALE (NOVOLOG) 1 VIAL SQ SCH (11:36)
[2024-11-30 13:38] VITALS: RESP 18
[2024-11-30] MEDS: busPIRone HCL 5 MG TABLET PO SCH (13:51)
[2024-11-30] MEDS: HEPARIN NA (PORCINE) 5,000 UNITS/ML 1ML VIAL SQ SCH (13:51)
[2024-11-30 16:05] VITALS: BMI 34.9
[2024-11-30] MEDS: BISACODYL 10 MG SUPP.RECT PR ONE (18:06)
[2024-11-30] MEDS: LIDOCAINE 5% TOPICAL PATCH TP SCH (18:07)
[2024-11-30] MEDS: ATORVASTATIN CA 10 MG TABLET (FP) PO SCH (21:14)
[2024-11-30] MEDS: LIDOCAINE PATCH REMOVAL MC SCH (21:14)
[2024-11-30] MEDS: INSULIN GLARGINE (LANTUS) 100 UNITS/ML UNITS SQ SCH (21:22)
[2024-11-30] MEDS: lamoTRIgine 100 MG TABLET PO SCH (21:58)
[2024-11-30] MEDS ORDERED: SENNOSIDES 8.8 MG/5 ML SYRUP PO SCH (22:00)
[2024-11-30] MEDS: KETOROLAC TROMETHAMINE 15 MG/ML VIAL IVPUSH PRN (22:41)
[2024-12-01] MEDS: MAG HYDROX/AL HYDROX/SIMETH 30 ML UNIT-DOSE CUP PO ONE (00:42)
[2024-12-01] MEDS: DOCUSATE SODIUM 100 MG CAPSULE (FP) PO ONE (01:27)
[2024-12-01] MEDS ORDERED: HYDROmorphone HCL 2 MG TABLET PO PRN ×2 (09:45→09:58)
[2024-12-01] MEDS ORDERED: HYDROmorphone HCl 2 MG/ML VIAL IVPB PRN (10:38)
[2024-12-01] MEDS: SENNOSIDES 8.6MG TABLET (FP) PO SCH (10:39)
[2024-12-01] MEDS ORDERED: HYDROmorphone HCL CARPU-JECT 2 MG/1 ML DISP.SYRIN IVPB PRN (10:40)
[2024-12-01] MEDS: MINERAL OIL 30 ML UNIT-DOSE CUP PO ONE (10:41)
[2024-12-01] MEDS: POLYETHYLENE GLYCOL (HEALTHYLAX) 3350 17 GM PACKET PO ONE (10:41)
[2024-12-01] MEDS: PEG 3350/NA SULF BICARB CL/KCL 4000 ML SOLN.RECON PO ONE (10:41)
[2024-12-01 10:50] LABS: HEMATOCRIT 38.5 % (34.1-44.9); HEMOGLOBIN 12.4 g/dL (11.2-15.7); MCHC 32.2 g/dl (32.2-35.5); MEAN CELL VOLUME 87.7 fl (79.4-94.8); MEAN PLT VOLUME 9.7 fl (9.4-12.3); PLATELET COUNT 233 x10^3/uL (182-369); RDW 12.8 % (12.4-16.4)
[2024-12-01 11:19] LABS: POTASSIUM 5.1 mmol/L (3.5-5.1)
[2024-12-01] MEDS: SODIUM CHLORIDE 1,000 ML IV SCH (11:21)
[2024-12-01 11:25] LABS: ALBUMIN 3.6 g/dl (3.4-5.0); CALCIUM 9.7 mg/dL (8.5-10.1)
[2024-12-01 11:26] LABS: MAGNESIUM 2.5 mg/dL (1.8-2.4)
[2024-12-01 11:27] LABS: PHOSPHOROUS 3.5 mg/dL (2.5-4.9)
[2024-12-01 11:28] LABS: BILIRUBIN,TOTAL 0.4 mg/dL (0.2-1)
[2024-12-01 11:29] LABS: CREATININE 1.5 mg/dL (0.55-1.3); TOT PROT 6.2 g/dl (6.4-8.2)
[2024-12-01] MEDS: MINERAL OIL ENEMA 133 ML ENEMA RC ONE (11:47)
[2024-12-01] MEDS: MAGNESIUM CITRATE 300 ML BOTTLE PO ONE (12:06)
[2024-12-01] MEDS: POLYETHYLENE GLYCOL (HEALTHYLAX) 3350 17 GM PACKET PO SCH (14:09)
[2024-12-01] MEDS ORDERED: MAG HYDROX/AL HYDROX/SIMETH 30 ML UNIT-DOSE CUP PO PRN (16:12)
[2024-12-01] MEDS: LACTATED RINGERS SOLUTION 1,000 ML/1,000 ML INFUS.BAG IV SCH (20:41)
[2024-12-02 09:15] LABS: POTASSIUM 4.5 mmol/L (3.5-5.1)
[2024-12-02 09:17] LABS: ABSOLUTE IMMATURE GRANULOCYTES 0.02 x10^3/uL (0.0-0.031); BASOPHILS # 0.01 x10^3/uL (0.01-0.08); EOSINOPHIL % 1.4 % (0.7-5.8); EOSINOPHILS # 0.07 x10^3/uL (0.04-0.36); HEMATOCRIT 37.6 % (34.1-44.9); HEMOGLOBIN 12.2 g/dL (11.2-15.7); MCHC 32.4 g/dl (32.2-35.5); MEAN CELL VOLUME 87.2 fl (79.4-94.8); MEAN PLT VOLUME 9.6 fl (9.4-12.3); MONOCYTE # 0.72 x10^3/uL (0.24-0.86); MONOCYTE % 14.3 % (4.7-12.5); PLATELET COUNT 213 x10^3/uL (182-369); RDW 12.8 % (12.4-16.4)
[2024-12-02 09:32] LABS: CREATININE 1.1 mg/dL (0.55-1.3)
[2024-12-02 09:35] LABS: ALBUMIN 3.8 g/dl (3.4-5.0); BLOOD UREA NITROGEN 18.2 mg/dL (7-18); CALCIUM 9.6 mg/dL (8.5-10.1); MAGNESIUM 2.9 mg/dL (1.8-2.4)
[2024-12-02 09:38] LABS: PHOSPHOROUS 2.9 mg/dL (2.5-4.9)
[2024-12-02 09:39] LABS: BILIRUBIN,TOTAL 0.3 mg/dL (0.2-1); TOT PROT 6.4 g/dl (6.4-8.2)
[2024-12-02] MEDS: PEG 3350/NA SULF BICARB CL/KCL 4000 ML SOLN.RECON PO ONE (13:27)
[2024-12-02] MEDS: CycloBENZAprine HCL 10 MG TABLET (FP) PO ONE (14:53)
[2024-12-02] MEDS: LOSARTAN POTASSIUM 50 MG TABLET PO SCH (17:18)
[2024-12-02] MEDS: ACETAMINOPHEN 1000 MG/100 ML BAG IVPB SCH (21:19)
[2024-12-03] MEDS: morphine SULFATE 4 MG/ML VIAL IVPUSH ONE ×2 (01:51→06:02)
[2024-12-03] MEDS: CycloBENZAprine HCL 10 MG TABLET (FP) PO ONE (08:00)
[2024-12-03] MEDS: KETOROLAC TROMETHAMINE 15 MG/ML VIAL IVPUSH ONE (08:00)
[2024-12-03] MEDS: ENOXAPARIN NA (PORCINE) 40 MG/0.4 ML DISP.SYRIN SQ SCH (09:03)
[2024-12-03 10:12] LABS: POTASSIUM 4.3 mmol/L (3.5-5.1)
[2024-12-03 10:15] LABS: ALBUMIN 3.8 g/dl (3.4-5.0); BLOOD UREA NITROGEN 13.9 mg/dL (7-18); CALCIUM 9.4 mg/dL (8.5-10.1); MAGNESIUM 2.1 mg/dL (1.8-2.4)
[2024-12-03 10:18] LABS: CREATININE 1.1 mg/dL (0.55-1.3)
[2024-12-03 10:20] LABS: BILIRUBIN,TOTAL 0.5 mg/dL (0.2-1)
[2024-12-03 10:41] LABS: TOT PROT 6.6 g/dl (6.4-8.2)
[2024-12-03] MEDS: IBUPROFEN 600 MG TABLET (FP) PO SCH (20:16)
[2024-12-03] MEDS: CycloBENZAprine HCL 10 MG TABLET (FP) PO SCH (21:07)
[2024-12-04] MEDS: ACETAMINOPHEN 500 MG TABLET (FP) PO SCH (14:13)
[2024-12-04] MEDS: oxyCODONE HCL 5 MG TABLET PO ONE ×2 (14:39→21:11)
[2024-12-04 15:25] LABS: HEMOGLOBIN 12.9 g/dL (11.2-15.7); MCHC 32.3 g/dl (32.2-35.5); MEAN CELL VOLUME 89.3 fl (79.4-94.8); MEAN PLT VOLUME 9.6 fl (9.4-12.3); PLATELET COUNT 238 x10^3/uL (182-369); RDW 13.1 % (12.4-16.4)
[2024-12-04 15:53] LABS: POTASSIUM 4.6 mmol/L (3.5-5.1)
[2024-12-04 15:55] LABS: CALCIUM 9.7 mg/dL (8.5-10.1)
[2024-12-04 15:56] LABS: ALBUMIN 3.6 g/dl (3.4-5.0); BLOOD UREA NITROGEN 19.1 mg/dL (7-18)
[2024-12-04 15:59] LABS: CREATININE 1.2 mg/dL (0.55-1.3)
[2024-12-04 16:00] LABS: BILIRUBIN,TOTAL 0.4 mg/dL (0.2-1); TOT PROT 6.2 g/dl (6.4-8.2)
[2024-12-04] MEDS: GABAPENTIN 100 MG CAPSULE PO SCH (21:11)
[2024-12-05] MEDS ORDERED: oxyCODONE HCL 5 MG TABLET PO PRN (08:43)
[2024-12-05 08:58] LABS: POTASSIUM 4.7 mmol/L (3.5-5.1)
[2024-12-05 09:06] LABS: CALCIUM 9.3 mg/dL (8.5-10.1)
[2024-12-05 09:07] LABS: ALBUMIN 3.8 g/dl (3.4-5.0); BLOOD UREA NITROGEN 20.4 mg/dL (7-18); MAGNESIUM 2.3 mg/dL (1.8-2.4)
[2024-12-05 09:10] LABS: CREATININE 1.1 mg/dL (0.55-1.3); PHOSPHOROUS 3.9 mg/dL (2.5-4.9)
[2024-12-05 09:12] LABS: BILIRUBIN,TOTAL 0.4 mg/dL (0.2-1); TOT PROT 6.4 g/dl (6.4-8.2)
[2024-12-05] MEDS: POLYETHYLENE GLYCOL (HEALTHYLAX) 3350 17 GM PACKET PO SCH (09:26)
[2024-12-05 11:10] VITALS: BP 129/68; PULSE 86; TEMP 98.2
== END 2024-12-05 15:35 | disposition home or self-care (01) | DRG 392 ==
LOC: JER 00:57 → JERBED 06:02 → J6S 13:09 → OBSVTOIN 12-01 20:43
PROVIDERS: ADMIT Internal Medicine; ATTEND Internal Medicine
DX: K59.00 Constipation, unspecified (principal); F13.20 Sedative, hypnotic or anxiolytic dependence, uncomplicated; E11.40 Type 2 diabetes mellitus with diabetic neuropathy, unspecified; E11.319 Type 2 diabetes mellitus with unspecified diabetic retinopathy without macular edema; F31.9 Bipolar disorder, unspecified; H40.9 Unspecified glaucoma; M10.9 Gout, unspecified; F17.200 Nicotine dependence, unspecified, uncomplicated; E78.5 Hyperlipidemia, unspecified; E86.0 Dehydration; M54.9 Dorsalgia, unspecified; M48.061 Spinal stenosis, lumbar region without neurogenic claudication; R10.32 Left lower quadrant pain
CPT/HCPCS: 36415; 71045-TC-FY; 72131-TC; 72148-TC; 74174-TC; 80053; 82962; 83605; 83690; 83735; 84100; 84484; 85025; 85027; 85651; 86140; 93005; 93010; 99284-25; 99285-25; G0378

== ENCOUNTER 2025-01-18 11:30 | Inpatient (IN) | payer OTHER ==
[2025-01-18 11:35] VITALS: BMI 34.2
[2025-01-18] MEDS ORDERED: IBUPROFEN 400 MG TABLET (FP) PO ONE (12:48)
[2025-01-18] MEDS ORDERED: ACETAMINOPHEN 500 MG TABLET (FP) ONE (12:48)
[2025-01-18] MEDS: IBUPROFEN 400 MG TABLET (FP) PO ONE (13:03)
[2025-01-18] MEDS: ACETAMINOPHEN 500 MG TABLET (FP) PO ONE (13:08)
[2025-01-18 16:13] LABS: ABSOLUTE IMMATURE GRANULOCYTES 0.02 x10^3/uL (0.0-0.031); BASOPHILS # 0.02 x10^3/uL (0.01-0.08); EOSINOPHIL % 0.4 % (0.7-5.8); EOSINOPHILS # 0.03 x10^3/uL (0.04-0.36); MCHC 32.4 g/dl (32.2-35.5); MEAN CELL VOLUME 90.0 fl (79.4-94.8); MEAN PLT VOLUME 10.0 fl (9.4-12.3); MONOCYTE # 1.14 x10^3/uL (0.24-0.86); MONOCYTE % 15.2 % (4.7-12.5); RDW 13.6 % (12.4-16.4)
[2025-01-18 16:32] LABS: ACTIVATED PTT 32.0 SECONDS (25.2-36.5); INR 0.96 (0.83-1.09); PROTHROMBIN TIME (PATIENT) 10.6 SEC (9.7-13.0)
[2025-01-18] MEDS: morphine CARPU-JECT 4 MG/1 ML DISP.SYRIN IVPUSH ONE (16:45)
[2025-01-18] MEDS ORDERED: ACETAMINOPHEN 325 MG TABLET (FP) PO PRN (16:47)
[2025-01-18 16:59] LABS: CO2 27.0 mmol/L (21-32); GLUCOSE,RANDOM 205.0 mg/dL (74-106)
[2025-01-18 17:02] LABS: CREATININE 2.0 mg/dL (0.55-1.3); SGOT/AST 15.0 U/L (15-37); SGPT/ALT 22.0 U/L (13-61)
[2025-01-18 17:04] LABS: TOT PROT 6.3 g/dl (6.4-8.2)
[2025-01-18 17:05] LABS: ALK PHOS 110.0 U/L (45-117)
[2025-01-18] MEDS: SODIUM CHLORIDE 1,000 ML IV SCH (20:17)
[2025-01-18 21:26] LABS: EPI CELLS 6 /uL (0-25.1); HYALINE CASTS 0 /uL (0-3.1); URINE APPEARANCE CLOUDY; URINE BILIRUBIN NEGATIVE (NEGATIVE); URINE COLOR YELLOW; URINE GLUCOSE (UA) 3+ (NEGATIVE); URINE KETONE TRACE (NEGATIVE); URINE LEUK ESTERASE NEGATIVE (NEGATIVE); URINE NITRITE NEGATIVE (NEGATIVE); URINE PROTEIN 2+ (NEGATIVE); URINE UROBILINOGEN 0.2 mg/dL (0.2-1.0)
[2025-01-18] MEDS: morphine CARPU-JECT 2 MG/1 ML DISP.SYRIN IVPUSH PRN (21:41)
[2025-01-18] MEDS: INSULIN GLARGINE (LANTUS) 100 UNITS/ML UNITS SQ SCH (23:29)
[2025-01-18] MEDS: ATORVASTATIN CA 10 MG TABLET (FP) PO SCH (23:29)
[2025-01-18] MEDS: INSULIN ASPART SLIDING SCALE (NOVOLOG) 1 VIAL SQ SCH (23:30)
[2025-01-18] MEDS: HEPARIN NA (PORCINE) 5,000 UNITS/ML 1ML VIAL SQ SCH (23:30)
[2025-01-19] MEDS: ACETAMINOPHEN 1000 MG/100 ML BAG IVPB PRN (00:57)
[2025-01-19 09:21] LABS: MCHC 30.7 g/dl (32.2-35.5); MEAN CELL VOLUME 93.8 fl (79.4-94.8); MEAN PLT VOLUME 10.2 fl (9.4-12.3); RDW 13.8 % (12.4-16.4)
[2025-01-19] MEDS: ACETAMINOPHEN 500 MG TABLET (FP) PO SCH (09:55)
[2025-01-19 10:12] LABS: CO2 27.0 mmol/L (21-32); GLUCOSE,RANDOM 167.0 mg/dL (74-106)
[2025-01-19 10:14] LABS: CREATININE 1.6 mg/dL (0.55-1.3)
[2025-01-19] MEDS: metFORMIN HCL 500 MG TABLET (FP) PO SCH (10:59)
[2025-01-19] MEDS ORDERED: SENNOSIDES 8.6MG TABLET (FP) PO PRN (16:42)
[2025-01-19] MEDS: busPIRone HCL 10 MG TABLET (FP) PO SCH (21:49)
[2025-01-19] MEDS: LAMOTRIGINE 100 MG, LAMOTRIGINE 50 MG PO SCH (21:50)
[2025-01-20 09:08] LABS: ABSOLUTE IMMATURE GRANULOCYTES 0.03 x10^3/uL (0.0-0.031); BASOPHILS # 0.02 x10^3/uL (0.01-0.08); EOSINOPHIL % 1.6 % (0.7-5.8); EOSINOPHILS # 0.08 x10^3/uL (0.04-0.36); MCHC 31.8 g/dl (32.2-35.5); MEAN CELL VOLUME 91.1 fl (79.4-94.8); MEAN PLT VOLUME 10.5 fl (9.4-12.3); MONOCYTE # 0.67 x10^3/uL (0.24-0.86); MONOCYTE % 13.3 % (4.7-12.5); RDW 13.2 % (12.4-16.4)
[2025-01-20] MEDS: LAMOTRIGINE 100 MG, LAMOTRIGINE 25 MG PO SCH (09:20)
[2025-01-20 09:59] LABS: CO2 28.0 mmol/L (21-32); GLUCOSE,RANDOM 111.0 mg/dL (74-106)
[2025-01-20 10:02] LABS: CREATININE 1.2 mg/dL (0.55-1.3)
[2025-01-21 08:54] LABS: ABSOLUTE IMMATURE GRANULOCYTES 0.02 x10^3/uL (0.0-0.031); BASOPHILS # 0.02 x10^3/uL (0.01-0.08); EOSINOPHIL % 1.4 % (0.7-5.8); EOSINOPHILS # 0.07 x10^3/uL (0.04-0.36); MCHC 32.1 g/dl (32.2-35.5); MEAN CELL VOLUME 89.9 fl (79.4-94.8); MEAN PLT VOLUME 9.9 fl (9.4-12.3); MONOCYTE # 0.66 x10^3/uL (0.24-0.86); MONOCYTE % 13.4 % (4.7-12.5); RDW 13.3 % (12.4-16.4)
[2025-01-21 09:31] LABS: CO2 28.0 mmol/L (21-32); GLUCOSE,RANDOM 143.0 mg/dL (74-106)
[2025-01-21 09:33] LABS: CREATININE 1.3 mg/dL (0.55-1.3)
[2025-01-22 09:19] LABS: ABSOLUTE IMMATURE GRANULOCYTES 0.04 x10^3/uL (0.0-0.031); BASOPHILS # 0.03 x10^3/uL (0.01-0.08); EOSINOPHIL % 1.7 % (0.7-5.8); EOSINOPHILS # 0.09 x10^3/uL (0.04-0.36); MCHC 31.7 g/dl (32.2-35.5); MEAN CELL VOLUME 90.4 fl (79.4-94.8); MEAN PLT VOLUME 10.0 fl (9.4-12.3); MONOCYTE # 0.68 x10^3/uL (0.24-0.86); MONOCYTE % 12.8 % (4.7-12.5); RDW 13.3 % (12.4-16.4)
[2025-01-22 09:39] LABS: CO2 29.0 mmol/L (21-32); GLUCOSE,RANDOM 190.0 mg/dL (74-106)
[2025-01-22 09:42] LABS: CREATININE 1.2 mg/dL (0.55-1.3)
[2025-01-22] MEDS: INSULIN GLARGINE (LANTUS) 100 UNITS/ML UNITS SQ SCH (22:40)
[2025-01-23] MEDS ORDERED: MIDAZOLAM HCL 2 MG/2 ML SINGLE DOSE VIAL ONE ×2 (07:24→08:06)
[2025-01-23] MEDS ORDERED: PROPOFOL 20 ML ONE ×4 (07:24→09:30)
[2025-01-23] MEDS ORDERED: BUPIVACAINE HCL/PF 0.5% (5MG/ML) 10 ML VIAL ONE (07:39)
[2025-01-23] MEDS ORDERED: DEXMEDETOMIDINE HCL 200 MCG/2 ML IVPB ONE (07:39)
[2025-01-23] MEDS ORDERED: ONDANSETRON 4 MG/2 ML VIAL ONE (09:04)
[2025-01-23] MEDS ORDERED: DEXAMETHASONE SOD PHOSPHATE 4 MG/1 ML VIAL ONE (09:04)
[2025-01-23] MEDS ORDERED: PHENYLEPHRINE HCL 10 MG/1 ML SINGLE DOSE VIAL ONE (09:04)
[2025-01-23] MEDS ORDERED: KETOROLAC TROMETHAMINE 30 MG/1 ML VIAL ONE (09:04)
[2025-01-23] MEDS ORDERED: MAG HYDROX/AL HYDROX/SIMETH 30 ML UNIT-DOSE CUP PO PRN (10:59)
[2025-01-23] MEDS ORDERED: ONDANSETRON 4 MG/2 ML VIAL IVPUSH PRN (10:59)
[2025-01-23] MEDS ORDERED: SENNOSIDES 8.6MG TABLET (FP) PO PRN (11:26)
[2025-01-23] MEDS ORDERED: ACETAMINOPHEN 325 MG TABLET (FP) PO PRN ×2 (11:30)
[2025-01-23] MEDS: LACTATED RINGERS SOLUTION 1,000 ML IV SCH ×2 (12:47)
[2025-01-23] MEDS: ACETAMINOPHEN 500 MG TABLET (FP) PO SCH (14:04)
[2025-01-23] MEDS ORDERED: morphine CARPU-JECT 2 MG/1 ML DISP.SYRIN IVPUSH PRN (15:45)
[2025-01-23 15:50] LABS: ABSOLUTE IMMATURE GRANULOCYTES 0.11 x10^3/uL (0.0-0.031); BASOPHILS # 0.02 x10^3/uL (0.01-0.08); EOSINOPHIL % 0.2 % (0.7-5.8); EOSINOPHILS # 0.02 x10^3/uL (0.04-0.36); MCHC 32.6 g/dl (32.2-35.5); MEAN CELL VOLUME 89.9 fl (79.4-94.8); MEAN PLT VOLUME 10.1 fl (9.4-12.3); MONOCYTE # 0.31 x10^3/uL (0.24-0.86); MONOCYTE % 3.8 % (4.7-12.5); RDW 13.2 % (12.4-16.4)
[2025-01-23 16:22] LABS: CO2 26.0 mmol/L (21-32); GLUCOSE,RANDOM 354.0 mg/dL (74-106)
[2025-01-23 16:25] LABS: CREATININE 1.5 mg/dL (0.55-1.3)
[2025-01-23] MEDS: CEFAZOLIN SODIUM 2 GM in DEXTROSE 5%-WATER 100 ML IVPB SCH (16:54)
[2025-01-23] MEDS: INSULIN ASPART SLIDING SCALE (NOVOLOG) 1 VIAL SQ SCH (17:04)
[2025-01-23] MEDS: busPIRone HCL 10 MG TABLET (FP) PO SCH (21:41)
[2025-01-23] MEDS: ATORVASTATIN CA 10 MG TABLET (FP) PO SCH (21:41)
[2025-01-23] MEDS: LAMOTRIGINE 100 MG, LAMOTRIGINE 50 MG PO SCH (21:41)
[2025-01-23] MEDS: SENNOSIDES/DOCUSATE COMBO (SENNA PLUS) TABLET (UD) PO SCH (21:41)
[2025-01-23] MEDS: INSULIN GLARGINE (LANTUS) 100 UNITS/ML UNITS SQ SCH (22:58)
[2025-01-24] MEDS: MELATONIN 5 MG TABLETS PO PRN
[2025-01-24 09:09] LABS: MCHC 32.7 g/dl (32.2-35.5); MEAN CELL VOLUME 90.0 fl (79.4-94.8); MEAN PLT VOLUME 9.9 fl (9.4-12.3); RDW 13.3 % (12.4-16.4)
[2025-01-24] MEDS: MULTIVITAMINS (DAILY MVI) TABLET (FP) PO SCH (09:14)
[2025-01-24] MEDS: ASPIRIN 325 MG TABLET PO SCH (09:15)
[2025-01-24] MEDS: PANTOPRAZOLE 40 MG TABLET PO SCH (09:15)
[2025-01-24] MEDS: LAMOTRIGINE 100 MG, LAMOTRIGINE 25 MG PO SCH (09:16)
[2025-01-24 09:39] LABS: CO2 27.0 mmol/L (21-32); CREATININE 1.2 mg/dL (0.55-1.3)
[2025-01-24 09:40] LABS: GLUCOSE,RANDOM 309.0 mg/dL (74-106)
[2025-01-24 12:55] VITALS: RESP 18
[2025-01-24 18:34] VITALS: BP 121/60; PULSE 81; TEMP 97.9
== END 2025-01-24 20:50 | DRG 493 ==
LOC: JER 11:30 → JERFT 11:30 → JERBED 14:48 → J6S 23:14
PROVIDERS: ADMIT Student in an Organized Health Care Education/Training Program; ATTEND Internal Medicine
PROC: 0QSH04Z Reposition Left Tibia with Internal Fixation Device, Open Approach (ICD-10-PCS; 2025-01-23)
PROC: 0QSK04Z Reposition Left Fibula with Internal Fixation Device, Open Approach (ICD-10-PCS; principal; 2025-01-23 07:30)
DX: S82.852A Displaced trimalleolar fracture of left lower leg, initial encounter for closed fracture (principal); F13.20 Sedative, hypnotic or anxiolytic dependence, uncomplicated; L97.528 Non-pressure chronic ulcer of other part of left foot with other specified severity; F41.9 Anxiety disorder, unspecified; F31.9 Bipolar disorder, unspecified; M10.9 Gout, unspecified; K76.0 Fatty (change of) liver, not elsewhere classified; K21.9 Gastro-esophageal reflux disease without esophagitis; E11.42 Type 2 diabetes mellitus with diabetic polyneuropathy; E11.621 Type 2 diabetes mellitus with foot ulcer; E78.5 Hyperlipidemia, unspecified; F17.210 Nicotine dependence, cigarettes, uncomplicated; I10 Essential (primary) hypertension; W01.0XXA Fall on same level from slipping, tripping and stumbling without subsequent striking against object, initial encounter; Y93.89 Activity, other specified; Y92.480 Sidewalk as the place of occurrence of the external cause; Y99.8 Other external cause status; Z89.422 Acquired absence of other left toe(s)
CPT/HCPCS: 36415; 73610-TC-LT-FY; 73630-TC-LT; 76000-TC-FY; 80048; 80053; 81003; 82962; 83036; 83735; 84100; 85025; 85027; 85610; 85730; 86850; 86900; 86901; 87637-QW; 93005; 93010; 94010; 94760; 97116-GP; 97162-GP; 99285-25; C1713